=== PATIENT | male | born 1955 | race Caucasian/White ===

== ENCOUNTER → 2017-08-05 | Outpatient (CLI) | payer BC ==
[~2017-08-05] MED LIST: CA C1TAB26 PO; CPR500T PO; ETAN50PE SQ; HCT25T PO; HYOS0.1216 PO; OXYC1CAP3 PO; PHEN200T27 PO
--- NOTE | 2017-08-05 15:45 | Diagnostic Imaging Report ---
INDICATION: History of kidney stones. COMPARISON: 08/30/2013. FINDINGS: Single supine radiographic view of the abdomen was obtained and demonstrates multiple extraosseous calcifications projecting over the bilateral renal shadows, left greater than right. Left-sided disease appears to have progressed when compared to 2012. No unexpected radiopaque foreign bodies are identified. Small bowel loops are nondistended. Bony structures show no acute abnormalities. IMPRESSION: 1. Bilateral nephrolithiasis, left greater than right. Dictated by: Dictated on workstation # [id number]
== END ==
LOC: RAD 14:50
PROVIDERS: ATTEND Urology
DX: N20.0 Calculus of kidney (principal)
CPT/HCPCS: 74000

== ENCOUNTER 2017-08-12 05:42 | Outpatient (CLI) | payer BC ==
[~2017-08-12] VITALS: Ht 175.3 cm; Wt 82.6 kg
== END 2017-08-12 11:15 ==
LOC: PREOP 05:42
PROVIDERS: ATTEND Urology
DX: Z01.818 Encounter for other preprocedural examination (principal); N20.0 Calculus of kidney

== ENCOUNTER 2017-08-18 07:00 | Day surgery (SDC) | payer BC ==
[~2017-08-18] VITALS: Ht 175.3 cm; Wt 82.6 kg
--- OUTSIDE RECORDS SUMMARY | 2017-08-18 07:05 | XMS REPORT | Continuity of Care Document ---
Author Author [facility] Organization [facility] Address Unknown Phone Unavailable Allergies Active Description Code Type Severity Reaction Onset Reported/Identified Relationship to Patient Clinical Status Yes No Known Drug Allergies [id number] Drug Allergy Unknown N/ A 08/29/2013 Medications Problems Procedures Results Encounters ACCT No. Visit Date/Time Discharge Status Pt. Type Provider Facility Loc./Unit Complaint [id number] 08/05/2017 14:50:00 2016 23:59:59 CLS Outpatient ELSA PEREZ MD [facility] RAD HISTORY OF STONES [id number] 06/07/2014 16:36:00 2013 23:59:59 CLS Preadmit ELSA PEREZ MD [facility] LAB STONES [id number] 06/14/2013 16:53:00 2012 00:01:00 DIS Outpatient [id number] 08/30/2013 06:40:00 2012 11:20:00 DIS Outpatient [id number] 08/29/2013 10:41:00 2012 23:59:59 CLS Outpatient [id number] 08/28/2013 11:34:00 2012 23:59:59 CLS Outpatient
--- NOTE | 2017-08-18 07:12 | Progress Note-Pre Operative ---
Pre-Operative Progress Note H&P Reviewed The H&P was reviewed, patient examined and no changes noted. Date Seen by Provider: Aug 18, 2017 Time Seen by Provider: 07:12 Date H&P Reviewed: Aug 18, 2017 Time H&P Reviewed: 07:12 Pre-Operative Diagnosis: BILATERAL RENAL STONES ELSA PEREZ MD Aug 18, 2017 7:12 am
[2017-08-18] MEDS ORDERED: cefTRIAXone 1 GM (ROCEPHIN) VIAL ONE (07:31)
[2017-08-18] MEDS ORDERED: NS (IVPB) 50 ML ONE (07:31)
[2017-08-18] MEDS: LACTATED RINGERS 1,000 ML IV PRN ×2 (07:35→09:30)
[2017-08-18 07:45] VITALS: BP 157/98
--- NOTE | 2017-08-18 07:55 | Diagnostic Imaging Report ---
INDICATION: Urinary tract calculi Supine images of the abdomen are obtained with comparison made to study of 08/05/2017. Similar to the previous study there are multiple groups of calcification projecting over the left kidney without significant overall change. No definite ureteric stone is seen. There are phleboliths seen in the pelvis. IMPRESSION: Stable appearance of multiple groups of calcifications in the region of left kidney without evidence of ureteric stone. Dictated by: Dictated on workstation # [id number]
[2017-08-18] MEDS ORDERED: cefTRIAXone 1 GM/NS 50 ML IVPB IV ONE ×2 (08:00)
[2017-08-18] MEDS ORDERED: CATHETER FLUSH 10 ML SYR IV PRN (08:00)
[2017-08-18] MEDS ORDERED: fentaNYL INJECTION 100 MCG/2 ML AMP ONE (08:54)
[2017-08-18] MEDS ORDERED: MIDAZOLAM 2 MG/2 ML (VERSED) VIAL ONE (08:54)
--- NOTE | 2017-08-18 09:16 | Discharge Inst-Urology ---
Discharge Inst-Urology Discharge Medications New, Converted, or Re-newed RX: RX on Chart Patient Instructions/Follow Up Plan Please make appointment to been seen in office in 3 weeks. KUB prior to it KUB on way home Post ESWL instructions Increase oral fluids for 48 hours and then as needed. Diet and Activity as tolerated. If questions or concerns contact your physician Or seek help at emergency department. ELSA PEREZ MD Aug 18, 2017 9:16 am
--- NOTE | 2017-08-18 09:18 | Progress Note-Post Operative ---
Post-Operative Progess Note Surgeon (s)/Glass Blower Helper (s) Surgeon ELSA PEREZ MD Glass Blower Helper: N/A Pre-Operative Diagnosis BILATERAL RENAL STONES Post-Operative Diagnosis SAME Procedure & Operative Findings Date of Procedure 08/18/17 Procedure Performed/Findings LT ESWL Anesthesia Type GENERAL Estimated Blood Loss Estimated blood loss (mL): N/A Specimens/Packing Specimens Removed N/A Packing: N/A ELSA PEREZ MD Aug 18, 2017 09:17
[2017-08-18] MEDS ORDERED: LIDOCAINE PF 2% 5 ML (XYLOCAINE) VIAL ONE (09:19)
[2017-08-18] MEDS ORDERED: FUROSEMIDE 40 MG/4 ML INJ (LASIX) ONE (09:19)
[2017-08-18] MEDS ORDERED: proPOfol 200 MG/20 ML (DIPRIVAN) VIAL IV ONE (09:19)
[2017-08-18] MEDS ORDERED: ONDANSETRON 4 MG/2 ML (SDV) Z0FRAN ONE (09:19)
[2017-08-18] MEDS ORDERED: DEXAMETHASONE 10 MG/ML (DECADRON) 1 ML VIAL ONE (09:19)
[2017-08-18] MEDS ORDERED: SEVOFLURANE (ULTANE) 15 ML INHAL SOLN ONE (09:19)
[2017-08-18] MEDS ORDERED: morphine INJ 10 MG/ML 1ML (SYR OR VIAL) IVP PRN (10:00)
[2017-08-18] MEDS ORDERED: ONDANSETRON 4 MG/2 ML (SDV) Z0FRAN IVP PRN (10:00)
[2017-08-18 10:50] VITALS: BP 149/103
[2017-08-18 11:20] VITALS: BP 151/100
[2017-08-18] MEDS ORDERED: HYDR-3874 PO (11:21)
[2017-08-18] MEDS ORDERED: TAMS0.4C98 PO (11:21)
[2017-08-18] MEDS ORDERED: NITR-68 PO (11:21)
[2017-08-18 11:35] VITALS: BP 151/100
--- NOTE | 2017-08-18 13:08 | Diagnostic Imaging Report ---
Supine view of the abdomen. INDICATION: Post lithotripsy. FINDINGS: There are multiple calcifications projecting over the left kidney up to 5 mm in size. No right flank calcifications and no pelvic or ureteric stones identified. IMPRESSION: Left flank calcifications are likely related to left kidney stones up to 5 mm in size. Dictated by: Dictated on workstation # [id number]
--- NOTE | 2017-08-20 22:29 | OPERATIVE REPORT ---
DATE OF SERVICE: 08/18/2017 PREOPERATIVE DIAGNOSIS: Bilateral renal stone. POSTOPERATIVE DIAGNOSIS: Bilateral renal stone. OPERATION PERFORMED: Left ESWL. SURGEON: Duc Perez M.D. ANESTHESIA: General. COMPLICATIONS: None. PROCEDURE: Under satisfactory general anesthesia, the patient in supine position on the ESWL table, the big group of stones on the left kidney was localized. Shocks were delivered at kV of 5, a total of 2500 shocks completely fragmented the stones that were not visualized. The other small stones did not need any ESWL. A total of 2500 shocks were delivered. The patient received 40 mg of Lasix and 30 mg of Toradol IV at the end of the procedure. He tolerated the procedure and anesthesia well and was sent to recovery room in stable condition. Job ID: [id number] DocumentID: [id number] Dictated Date: 08/18/2017 09:41:09 Apartment Coordinator Date: 08/18/2017 18:26:21 Dictated By: DUC PEREZ MD
== END 2017-08-18 12:00 | disposition home or self-care (01) ==
LOC: SDC 07:00
PROVIDERS: ATTEND Urology
DX: N20.0 Calculus of kidney (principal)
CPT/HCPCS: 74000; 87081

== ENCOUNTER → 2017-09-08 | Outpatient (CLI) | payer BC ==
[~2017-09-08] MED LIST changes: +HYDR-3874 PO; +NITR-68 PO; +TAMS0.4C98 PO
--- NOTE | 2017-09-08 19:20 | Diagnostic Imaging Report ---
INDICATION: Bilateral renal stones, followup after lithotripsy. FINDINGS: There are left flank calcifications up to 5 mm in size projecting over the mid and lower left renal silhouette suggestive of stones. No definitive right kidney stones. No ureteric stone is identified. There is a small calcification near the right side of the pelvis, which might relate to a phlebolith. IMPRESSION: 1. Left flank calcifications likely related to left kidney stones. 2. Left pelvic calcification is indeterminate, favored to be a phlebolith. Dictated by: Dictated on workstation # [id number]
== END ==
LOC: RAD 14:18
PROVIDERS: ATTEND Urology
DX: R19.07 Generalized intra-abdominal and pelvic swelling, mass and lump (principal)
CPT/HCPCS: 74000

== ENCOUNTER 2017-09-12 15:35 | Outpatient (RCR) | payer BC | END 2017-12-07 | disposition home or self-care (01) | LOC: LAB 15:35 | PROVIDERS: ATTEND Urology | DX: N20.9 Urinary calculus, unspecified (principal) | CPT/HCPCS: 36415; 82140; 82340; 82507; 82570; 83735; 83945; 83986; 84105; 84133; 84300; 84392; 84560; 88300 ==

== ENCOUNTER 2018-07-05 16:28 | Outpatient (RCR) | payer BC ==
[~2018-07-05 16:28] MED LIST changes: +HYDR-3870 PO; -HYDR-3874 PO
--- NOTE | 2018-07-05 17:12 | Diagnostic Imaging Report ---
INDICATION: Renal stone. COMPARISON: 09/08/2017 FINDINGS: Single view of the abdomen demonstrates midpole left renal calculi unchanged measuring 5 mm. There are persistent but decreased renal calculi in the inferior pole of the left kidney. No ureteral calculus or bowel or bladder calculus is identified. IMPRESSION: Left renal calculi as described. Overall, there are less calcifications in the inferior pole of the left kidney. Dictated by: Dictated on workstation # [id number]
== END 2018-07-08 | disposition home or self-care (01) ==
LOC: RAD 16:28 → EDSTATUS 16:33
PROVIDERS: ATTEND Urology
DX: Z09 Encounter for follow-up examination after completed treatment for conditions other than malignant neoplasm (principal); Z87.442 Personal history of urinary calculi
CPT/HCPCS: 74018

== ENCOUNTER → 2018-09-24 | Outpatient (CLI) | payer BC ==
[2018-09-24 09:32] LABS: BASOPHILS % (AUTO) 0 % (0-10); EOSINOPHILS # (AUTO) 0.1 10^3/uL (0.0-0.3); EOSINOPHILS % (AUTO) 3 % (0-10); HEMATOCRIT 45 % (40-54); HEMOGLOBIN 14.8 G/DL (13.3-17.7); LYMPHOCYTES # (AUTO) 1.6 X 10^3 (1.0-4.0); LYMPHOCYTES % (AUTO) 37 % (12-44); MEAN CORPUSCULAR HEMOGLOBIN 30 PG (25-34); MEAN CORPUSCULAR HGB CONC 33 G/DL (32-36); MEAN CORPUSCULAR VOLUME 91 FL (80-99); MEAN PLATELET VOLUME 10.3 FL (7.4-10.4); MONOCYTES # (AUTO) 0.6 X 10^3 (0.0-1.0); MONOCYTES % (AUTO) 13 % (0-12); NEUTROPHILS # (AUTO) 2.1 X 10^3 (1.8-7.8); NEUTROPHILS % (AUTO) 47 % (42-75); PLATELET COUNT 229 10^3/uL (130-400); RED BLOOD COUNT 4.94 10^6/uL (4.35-5.85); RED CELL DISTRIBUTION WIDTH 13.5 % (10.0-14.5); WHITE BLOOD COUNT 4.5 10^3/uL (4.3-11.0)
[2018-09-24 09:53] LABS: ALANINE AMINOTRANSFERASE 21 U/L (0-55); ALBUMIN 3.9 GM/DL (3.2-4.5); ALKALINE PHOSPHATASE 55 U/L (40-136); BILIRUBIN,TOTAL 0.9 MG/DL (0.1-1.0); BUN/CREATININE RATIO 19; CALCIUM 9.1 MG/DL (8.5-10.1); CARBON DIOXIDE 26 MMOL/L (21-32); CHLORIDE 106 MMOL/L (98-107); CHOLESTEROL 206 MG/DL (< 200); CREATININE SERUM 1.13 MG/DL (0.60-1.30); GFR ESTIMATED > 60; GLUCOSE 101 MG/DL (70-105); HDL CHOLESTEROL 46 MG/DL (40-60); SODIUM 139 MMOL/L (135-145); TOTAL PROTEIN 7.4 GM/DL (6.4-8.2); TRIGLYCERIDES 58 MG/DL (<150); VLDL CHOLESTEROL 12 MG/DL (5-40)
== END ==
LOC: LAB 09:00
PROVIDERS: ATTEND Family Medicine
DX: E55.9 Vitamin D deficiency, unspecified (principal); R53.83 Other fatigue
CPT/HCPCS: 36415; 80053; 80061; 84403; 84443; 85025

== ENCOUNTER 2019-01-10 12:54 | Outpatient (CLI) | payer BC | END 2019-01-10 13:35 | disposition home or self-care (01) | LOC: SLEEP 12:54 | PROVIDERS: ATTEND Nurse Practitioner Family | DX: G47.10 Hypersomnia, unspecified (principal); G47.00 Insomnia, unspecified; R06.83 Snoring; F39 Unspecified mood [affective] disorder ==

== ENCOUNTER → 2019-01-14 | Outpatient (CLI) | payer BC | LOC: LAB 08:17 | PROVIDERS: ATTEND Nurse Practitioner Family | DX: R53.83 Other fatigue (principal) | CPT/HCPCS: 36415; 84402; 84403 ==

== ENCOUNTER 2019-01-26 13:01 | Emergency (ER) | payer BC ==
[~2019-01-26] VITALS: Ht 175.3 cm; Wt 79.4 kg
--- OUTSIDE RECORDS SUMMARY | 2019-01-26 13:15 | XMS REPORT | CCD ---
Author Author Lorrie Salas MD, 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 Name Role Phone PP Unavailable CCM Unavailable Summary Purpose Interface Exchange Insurance Providers Payer name Policy type / Coverage type Covered constitution party ID Effective Begin Date Effective End Date Blue Cross Blue Shield [facility] Blue Cross/Blue Shield [id number] Unknown Family history Mother Diagnosis Age At Onset Heart Attack Unknown Social History Social History Element Codes Description Effective Dates Marital status Unknown Irene 01/12/2019 Number of children Unknown 0 biological; 2 step children 01/12/2019 Employment Unknown 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 [employer] 01/12/[address]: 120801928 Never smoker 09/23/[address]: 130394369 Never drinks alcohol 09/23/2018 Allergies, Adverse Reactions, Alerts Substance Reaction Codes Entered Date Inactivated Date Status * NO KNOWN DRUG ALLERGIES Unknown 01/12/2019 No Inactive Date Active Past Medical History Illness Codes Condition Status Onset Date Resolved Date Generalized anxiety disorder ICD-9: 300.00 ICD-10: F41.1 Active 09/23/2018 Unknown Major depressive disorder, single episode, moderate ICD-9: 296.22 ICD-10: F32.1 Active 09/23/2018 Unknown Other fatigue ICD-9: 780.79 ICD-10: R53.83 Active 09/23/2018 Unknown Mixed hyperlipidemia ICD-9: 272.2 ICD-10: E78.2 Active 01/05/2019 Unknown Vitamin D deficiency, unspecified ICD-9: 268.9 ICD-10: E55.9 Active 01/05/2019 Unknown Problems Condition Codes Effective Dates Condition Status Generalized anxiety disorder ICD-9: 300.00 ICD-10: F41.1 09/23/2018 Active Major depressive disorder, single episode, moderate ICD-9: 296.22 ICD-10: F32.1 09/23/2018 Active Other fatigue ICD-9: 780.79 ICD-10: R53.83 09/23/2018 Active Mixed hyperlipidemia ICD-9: 272.2 ICD-10: E78.2 01/05/2019 Active Vitamin D deficiency, unspecified ICD-9: 268.9 ICD-10: E55.9 01/05/2019 Active Medications Medication Codes Instructions Start Date Stop Date Status Fill Instructions buspirone 5 mg tablet RxNorm: 646388 1 Tablet(s) PO BID 201802/10/2019 Active Lexapro 10 mg tablet RxNorm: 499162 1 Tablet(s) PO QPM 201807/03/2019 Active Vitamin D2 50,000 unit capsule RxNorm: 4507025 1 Capsule(s) PO QW and take vit d 2000 1 tab one day with weekly dose 10/05/2018 12/27/2018 Inactive pravastatin 20 mg tablet RxNorm: 135142 1 Tablet(s) PO QPM 02/01/2019 Active Vitamin D2 50,000 unit capsule RxNorm: 0776046 1 Capsule(s) PO QW and take vit d 2000 1 tab one day with weekly dose 10/05/2018 10/04/2018 Inactive pravastatin 20 mg tablet RxNorm: 134418 1 Tablet(s) PO QPM 10/04/2018 Inactive hydrochlorothiazide 25 mg tablet RxNorm: 100196 1 Tablet(s) PO daily No Start Date Active Stelara 45 mg/0.5 mL subcutaneous solution RxNorm: 2590531 1 Milliliter(s) SQ q three months No Start Date Active Medication Administered No Medication Administered data Immunizations No Immunization data Assessments Condition Codes Effective Dates Major depressive disorder, single episode, moderate ICD-10: F32.1 ICD-9: 296.22 01/12/2019 Generalized anxiety disorder ICD-10: F41.1 ICD-9: 300.00 01/12/2019 Other fatigue ICD-10: R53.83 ICD-9: 780.79 01/12/2019 Mixed hyperlipidemia ICD-10: E78.2 ICD-9: 272.2 01/05/2019 Vitamin D deficiency, unspecified ICD-10: E55.9 ICD-9: 268.9 01/05/2019 Reason For Visit Reason For Visit Effective Dates Notes fatigue 01/12/2019 abdominal pain 01/05/2019 depression 09/23/2018 Results Observation Observation Code Item Item Code Result Date Comp Metabolic Pxw940 NA 138 mEq/L 01/06/2019 Comp Metabolic Jew117 K 4.4 mEq/L 01/06/2019 Comp Metabolic Bbg050 CL 103 mEq/L 01/06/2019 Comp Metabolic Gky038 CO2 28.0 mEq/L 01/06/2019 Comp Metabolic Owv977 ANION GAP 11 01/06/2019 Comp Metabolic Dsp544 GLUCOSE 93 mg/dL 01/06/2019 Comp Metabolic Eiw625 Creat 1.1 mg/dL 01/06/2019 Comp Metabolic Qtd569 eGFR 74 ml/min/1.73m2 01/06/2019 Comp Metabolic Iru280 BUN 16 mg/dL 01/06/2019 Comp Metabolic Vtr578 B/C Ratio 14.8 Ratio 01/06/2019 Comp Metabolic Nkq666 CALCIUM 9.3 mg/dL 01/06/2019 Comp Metabolic Eks488 ALK PHOS 68 U/L 01/06/2019 Comp Metabolic Rzj099 AST(SGOT) 25 U/L 01/06/2019 Comp Metabolic Jaw609 ALT(SGPT) 23 U/L 01/06/2019 Comp Metabolic Fch009 BILI T 0.6 mg/dL 01/06/2019 Comp Metabolic Eon604 ALBUMIN 3.9 g/dL 01/06/2019 Comp Metabolic Zfg526 TPRO 7.4 g/dL 01/06/2019 Comp Metabolic Noc854 GLOB 3.5 g/dL 01/06/2019 Comp Metabolic Xjn218 A/G Ratio 1.1 Ratio 01/06/2019 Comp Metabolic Qqy085 Osmo 277 mOsmo 01/06/2019 Vitamin D 25 Oh Jse2948 VITAMIN D, 25 HYDROXY 61.31 ng/mL Lipid Ord30 CHOL 196 mg/dL 01/06/2019 Lipid Ord30 HDL 52.0 mg/dl 01/06/2019 Lipid Ord30 TRIG 68 mg/dL 01/06/2019 Lipid Ord30 LDL 130 mg/dL 01/06/2019 Lipid Ord30 C/HDL 3.8 Ratio 01/06/2019 Cbc With Differential Ord2 WBC 7.51 K/ul 01/05/2019 Cbc With Differential Ord2 RBC 4.76 M/ul 01/05/2019 Cbc With Differential Ord2 HGB 14.4 g/dl 01/05/2019 Cbc With Differential Ord2 HCT 44.0 % 01/05/2019 Cbc With Differential Ord2 Neut% 63.0 % 01/05/2019 Cbc With Differential Ord2 MCV 92.4 fl 01/05/2019 Cbc With Differential Ord2 Lymph% 27.8 % 01/05/2019 Cbc With Differential Ord2 MCH 30.3 pg 01/05/2019 Cbc With Differential Ord2 [place]% 8.0 % 01/05/2019 Cbc With Differential Ord2 MCHC 32.7 pg 01/05/2019 Cbc With Differential Ord2 Eos% 0.9 % 01/05/2019 Cbc With Differential Ord2 PLT 250 K/ul 01/05/2019 Cbc With Differential Ord2 Baso% 0.3 % 01/05/2019 Cbc With Differential Ord2 RDW 13.9 % 01/05/2019 Cbc With Differential Ord2 Neut ABS# 4.73 K/ul 01/05/2019 Cbc With Differential Ord2 Lymph ABS# 2.09 K/ul 01/05/2019 Cbc With Differential Ord2 [place] ABS# 0.6 K/ul 01/05/2019 Cbc With Differential Ord2 Eos ABS# 0.1 K/ul 01/05/2019 Cbc With Differential Ord2 Baso ABS# 0.0 K/ul 01/05/2019 Review of Systems System Result Effective Dates Constitutional No recent illness 2018 Constitutional anorexia 01/12/2019 Constitutional No night sweats 2018 Constitutional No chills 01/12/2019 Constitutional No diaphoresis 01/12/2019 Constitutional fatigue 01/12/2019 Constitutional No fever 01/12/2019 Constitutional insomnia 01/12/2019 Constitutional No malaise 01/12/2019 Eyes No blindness 01/12/2019 Ears/Nose/Throat/Neck No dizziness 2018 Ears/Nose/Throat/Neck No nasal discharge 01/12/2019 Cardiovascular No chest pain/pressure 05/2019 Cardiovascular No dyspnea 01/12/2019 Respiratory No chest congestion 2018 Respiratory cough 01/12/2019 Gastrointestinal No constipation 2018 Gastrointestinal No diarrhea 01/12/2019 Gastrointestinal No hematochezia 2018 Gastrointestinal No melena 01/12/2019 Gastrointestinal No nausea 01/12/2019 Gastrointestinal No vomiting 01/12/2019 Musculoskeletal No joint complaint 2018 Neurologic No alteration of consciousness 01/12/2019 Neurologic No mental status change 2018 Psychiatric anxiety 01/12/2019 Psychiatric depression 01/12/2019 Psychiatric No suicidality 01/12/2019 Constitutional No recent illness 2018 Constitutional No chills 01/05/2019 Constitutional No diaphoresis 01/05/2019 Constitutional fatigue 01/05/2019 Constitutional No fever 01/05/2019 Constitutional insomnia 01/05/2019 Eyes No blindness 01/05/2019 Ears/Nose/Throat/Neck No nasal discharge 01/05/2019 Cardiovascular No chest pain/pressure Cardiovascular No dyspnea 01/05/2019 Respiratory No chest congestion 2018 Respiratory cough 01/05/2019 Gastrointestinal abdominal pain 2018 Gastrointestinal No constipation 2018 Gastrointestinal No diarrhea 01/05/2019 Gastrointestinal No hematochezia 2018 Gastrointestinal No melena 01/05/2019 Gastrointestinal No nausea 01/05/2019 Gastrointestinal No vomiting 01/05/2019 Musculoskeletal No joint complaint 2018 Neurologic No alteration of consciousness 01/05/2019 Neurologic No mental status change 2018 Psychiatric anxiety 01/05/2019 Psychiatric depression 01/05/2019 Psychiatric No suicidality 01/05/2019 Constitutional No anorexia 01/05/2019 Constitutional No night sweats 2018 Constitutional No malaise 01/05/2019 Ears/Nose/Throat/Neck No dizziness 2018 Constitutional No recent illness 2017 Constitutional No chills 09/23/2018 Constitutional No diaphoresis 09/23/2018 Constitutional fatigue 09/23/2018 Constitutional No fever 09/23/2018 Constitutional insomnia 09/23/2018 Eyes No eye erythema 09/23/2018 Ears/Nose/Throat/Neck No nasal discharge 09/23/2018 Cardiovascular No chest pain/pressure Cardiovascular No dyspnea 09/23/2018 Respiratory No cough 09/23/2018 Respiratory No chest congestion 2017 Gastrointestinal No abdominal pain 2017 Gastrointestinal No constipation 2017 Gastrointestinal No diarrhea 09/23/2018 Gastrointestinal No nausea 09/23/2018 Gastrointestinal No vomiting 09/23/2018 Gastrointestinal No melena 09/23/2018 Gastrointestinal No hematochezia 2017 Musculoskeletal No joint complaint 2017 Neurologic No alteration of consciousness 09/23/2018 Neurologic No mental status change 2017 Psychiatric anxiety 09/23/2018 Psychiatric depression 09/23/2018 Psychiatric No suicidality 09/23/2018 Physical Exam Exam Name System Name Item Name Status Result Effective Dates Notes Full Exam - General 1994 Constitutional general appearance Overall: well developed 01/12/2019 None Full Exam - General 1994 Constitutional general appearance Overall: in no acute distress 01/12/2019 None Full Exam - General 1994 Constitutional general appearance Overall: well nourished 01/12/2019 None Full Exam - General 1994 Eyes conjunctiva /eyelids Overall: conjunctiva clear 01/12/2019 None Full Exam - General 1994 Eyes conjunctiva /eyelids Overall: cornea clear 01/12/2019 None Full Exam - General 1994 Eyes conjunctiva /eyelids Overall: eyelids normal 01/12/2019 None Full Exam - General 1994 Eyes pupils and irises Overall: pupils equal, round, reactive to light and accomodation 01/12/2019 None Full Exam - General 1994 Ears/Nose/Throat otoscopic exam Overall: external auditory canals clear 01/12/2019 None Full Exam - General 1994 Ears/Nose/Throat otoscopic exam Overall: tympanic membranes clear 01/12/2019 None Full Exam - General 1994 Ears/Nose/Throat lips/teeth/gingiva Overall: benign lips 01/12/2019 None Full Exam - General 1994 Ears/Nose/Throat oral cavity/pharynx/larynx Overall: oral mucosa clear 01/12/2019 None Full Exam - General 1994 Ears/Nose/Throat oral cavity/pharynx/larynx Overall: oropharyngeal mucosa clear 01/12/2019 None Full Exam - General 1994 Respiratory auscultation Overall: breath sounds clear bilaterally 01/12/2019 None Full Exam - General 1994 Respiratory respiratory effort/rhythm Overall: no retractions 01/12/2019 None Full Exam - General 1994 Respiratory respiratory effort/rhythm Overall: normal rate 01/12/2019 None Full Exam - General 1994 Cardiovascular auscultation of heart Overall: regular rate 01/12/2019 None Full Exam - General 1994 Cardiovascular auscultation of heart Overall: normal heart sounds 01/12/2019 None Full Exam - General 1994 Abdomen abdominal exam Overall: no tenderness 01/12/2019 None Full Exam - General 1994 Abdomen abdominal exam Overall: normal bowel sounds 01/12/2019 None Full Exam - Cardiology Lymphatic neck nodes Overall: anterior cervical chain benign 01/12/2019 None Full Exam - Cardiology Lymphatic neck nodes Overall: posterior cervical chain benign 01/12/2019 None Full Exam - Cardiology Integument inspection/palpation Overall: no rash, lesions 01/12/2019 None Full Exam - General 1995 Musculoskeletal gait and station Overall: normal gait 01/12/2019 None Full Exam - General 1995 Musculoskeletal gait and station Overall: normal station 01/12/2019 None Full Exam - General 1994 Musculoskeletal head and neck Overall: head atraumatic 01/12/2019 None Full Exam - General 1994 Neurologic cranial nerves Overall: crainial nerves 2 - 12 grossly intact 01/12/2019 None Full Exam - General 1994 Psychiatric orientation/consciousness Overall: oriented to person, place and time 01/12/2019 None Full Exam - General 1994 Psychiatric mood and affect Overall: normal mood and affect 01/12/2019 None Full Exam - General 1994 Psychiatric appearance Overall: well-groomed, good eye contact 01/12/2019 None Full Exam - General 1994 Constitutional general appearance Overall: well developed 01/05/2019 None Full Exam - General 1994 Constitutional general appearance Overall: in no acute distress 01/05/2019 None Full Exam - General 1994 Constitutional general appearance Overall: well nourished 01/05/2019 None Full Exam - General 1994 Eyes conjunctiva /eyelids Overall: conjunctiva clear 01/05/2019 None Full Exam - General 1994 Eyes conjunctiva /eyelids Overall: cornea clear 01/05/2019 None Full Exam - General 1994 Eyes conjunctiva /eyelids Overall: eyelids normal 01/05/2019 None Full Exam - General 1994 Eyes pupils and irises Overall: pupils equal, round, reactive to light and accomodation 01/05/2019 None Full Exam - General 1994 Ears/Nose/Throat otoscopic exam Overall: external auditory canals clear 01/05/2019 None Full Exam - General 1994 Ears/Nose/Throat otoscopic exam Overall: tympanic membranes clear 01/05/2019 None Full Exam - General 1994 Ears/Nose/Throat lips/teeth/gingiva Overall: benign lips 01/05/2019 None Full Exam - General 1994 Ears/Nose/Throat oral cavity/pharynx/larynx Overall: oral mucosa clear 01/05/2019 None Full Exam - General 1994 Ears/Nose/Throat oral cavity/pharynx/larynx Overall: oropharyngeal mucosa clear 01/05/2019 None Full Exam - General 1994 Respiratory auscultation Overall: breath sounds clear bilaterally 01/05/2019 None Full Exam - General 1994 Respiratory respiratory effort/rhythm Overall: no retractions 01/05/2019 None Full Exam - General 1994 Respiratory respiratory effort/rhythm Overall: normal rate 01/05/2019 None Full Exam - General 1994 Cardiovascular auscultation of heart Overall: regular rate 01/05/2019 None Full Exam - General 1994 Cardiovascular auscultation of heart Overall: normal heart sounds 01/05/2019 None Full Exam - General 1994 Abdomen abdominal exam Overall: no tenderness 01/05/2019 None Full Exam - General 1994 Abdomen abdominal exam Overall: normal bowel sounds 01/05/2019 None Full Exam - General 1994 Musculoskeletal gait and station Overall: normal gait 01/05/2019 None Full Exam - General 1994 Musculoskeletal gait and station Overall: normal station 01/05/2019 None Full Exam - General 1994 Musculoskeletal head and neck Overall: head atraumatic 01/05/2019 None Full Exam - General 1994 Neurologic cranial nerves Overall: crainial nerves 2 - 12 grossly intact 01/05/2019 None Full Exam - General 1994 Psychiatric orientation/consciousness Overall: oriented to person, place and time 01/05/2019 None Full Exam - General 1994 Psychiatric mood and affect Overall: normal mood and affect 01/05/2019 None Full Exam - General 1994 Psychiatric appearance Overall: well-groomed, good eye contact 01/05/2019 None Full Exam - Cardiology Integument inspection/palpation Overall: no rash, lesions 01/05/2019 None Full Exam - Cardiology Lymphatic neck nodes Overall: anterior cervical chain benign 01/05/2019 None Full Exam - Cardiology Lymphatic neck nodes Overall: posterior cervical chain benign 01/05/2019 None Full Exam - General 1994 Constitutional general appearance Overall: well developed 09/23/2018 None Full Exam - General 1994 Constitutional general appearance Overall: in no acute distress 09/23/2018 None Full Exam - General 1994 Constitutional general appearance Overall: well nourished 09/23/2018 None Full Exam - General 1994 Eyes conjunctiva /eyelids Overall: eyelids normal 09/23/2018 None Full Exam - General 1994 Eyes conjunctiva /eyelids Overall: cornea clear 09/23/2018 None Full Exam - General 1994 Eyes conjunctiva /eyelids Overall: conjunctiva clear 09/23/2018 None Full Exam - General 1994 Eyes pupils and irises Overall: pupils equal, round, reactive to light and accomodation 09/23/2018 None Full Exam - General 1994 Ears/Nose/Throat otoscopic exam Overall: tympanic membranes clear 09/23/2018 None Full Exam - General 1994 Ears/Nose/Throat otoscopic exam Overall: external auditory canals clear 09/23/2018 None Full Exam - General 1994 Ears/Nose/Throat lips/teeth/gingiva Overall: benign lips 09/23/2018 None Full Exam - General 1994 Ears/Nose/Throat oral cavity/pharynx/larynx Overall: oral mucosa clear 09/23/2018 None Full Exam - General 1994 Ears/Nose/Throat oral cavity/pharynx/larynx Overall: oropharyngeal mucosa clear 09/23/2018 None Full Exam - General 1994 Respiratory respiratory effort/rhythm Overall: normal rate 09/23/2018 None Full Exam - General 1994 Respiratory respiratory effort/rhythm Overall: no retractions 09/23/2018 None Full Exam - General 1994 Respiratory auscultation Overall: breath sounds clear bilaterally 09/23/2018 None Full Exam - General 1994 Cardiovascular auscultation of heart Overall: regular rate 09/23/2018 None Full Exam - General 1994 Cardiovascular auscultation of heart Overall: normal heart sounds 09/23/2018 None Full Exam - General 1994 Abdomen abdominal exam Overall: no tenderness 09/23/2018 None Full Exam - General 1994 Abdomen abdominal exam Overall: normal bowel sounds 09/23/2018 None Full Exam - General 1994 Musculoskeletal head and neck Overall: head atraumatic 09/23/2018 None Full Exam - General 1994 Musculoskeletal gait and station Overall: normal station 09/23/2018 None Full Exam - General 1994 Musculoskeletal gait and station Overall: normal gait 09/23/2018 Full Exam - General 1994 Neurologic cranial nerves Overall: crainial nerves 2 - 12 grossly intact 09/23/2018 Full Exam - General 1994 Psychiatric orientation/consciousness Overall: oriented to person, place and time 09/23/2018 None Full Exam - General 1994 Psychiatric mood and affect Overall: normal mood and affect 09/23/2018 None Full Exam - General 1994 Psychiatric appearance Overall: well-groomed, good eye contact 09/23/2018 None Procedures No Procedures data Vital Signs Date Vital 01/12/2019 Blood Pressure 1: 138/90 Code : 8480-6 BMI: 25.8 Code : 55289-9 Heart Rate 1 : 74 bpm Height: 5'9" SpO2: 97% Weight: 175 lbs 01/05/2019 Blood Pressure 1: 110/78 Code : 8480-6 BMI: 26.3 Code : 13592-0 Heart Rate 1 : 78 bpm Height: 5'9" SpO2: 98% Weight: 178 lbs 09/23/2018 Blood Pressure 1: 110/68 Code : 8480-6 BMI: 25.8 Code : 24253-2 Heart Rate 1 : 103 bpm Height: 5'9" SpO2: 98% Weight: 175 lbs Functional Status No Functional Status data History of Present Illness Symptom Name Status Result Effective Date Notes Limitation on Activities moderately limits activities 01/12/2019 None Onset of Symptom months ago 01/12/2019 None Triggers no known associated factors 01/12/2019 None Pertinent Findings chills 01/12/2019 None Pertinent Findings depressed mood 01/12/2019 None Pertinent Findings Denies cough 01/12/2019 None Pertinent Findings Denies dyspnea 01/12/2019 None Pertinent Findings Denies fever 01/12/2019 None Pertinent Findings insomnia 01/12/2019 -His states that he wakes up a couple of times during the night Frequency of Episodes Denies daily 01/12/2019 None Timing of Episodes no specific time 01/12/2019 None Onset and Resolution Denies ongoing 01/12/2019 None Location in the [facility] 01/05/2019 None Quality aching 2018 None Quality constant None Limitation on Activities moderately limits activities 01/05/2019 None Onset of Symptom _ months ago 01/05/2019 None Frequency of Episodes daily 01/05/2019 None Onset of Symptom during adulthood 01/05/2019 None depression Onset and Resolution sudden in onset 09/23/2018 None depression Frequency of Episodes daily 09/23/2018 None anxiety Quality constant 09/23/2018 None anxiety Onset and Resolution gradual in onset 09/23/2018 None fatigue Limitation on Activities moderately limits activities 09/23/2018 None fatigue Onset of Symptom 6 months ago 09/23/2018 None fatigue Frequency of Episodes daily 09/23/2018 None anxiety Onset of Symptom 6 months ago 09/23/2018 None depression Onset of Symptom 6 months ago 09/23/2018 None Advance Directives No Advance Directive data Encounters Encounter Performer Location Codes Date [id number]) [id number] EST. PATIENT, LEVEL IV Diagnosis: Generalized anxiety disorder[ICD10: F41.1] Diagnosis: Major depressive disorder, single episode, moderate[ICD10: F32.1] Diagnosis: Other fatigue[ICD10: R53.83] [facility] CPT-4: 56727 01/12/2019 ([id number]) [id number] EST. PATIENT, LEVEL IV Diagnosis: Mixed hyperlipidemia[ICD10: E78.2] Diagnosis: Generalized anxiety disorder[ICD10: F41.1] Diagnosis: Major depressive disorder, single episode, moderate[ICD10: F32.1] Diagnosis: Vitamin D deficiency, unspecified[ICD10: E55.9] Diagnosis: Other fatigue[ICD10: R53.83] [facility] CPT-4: 53445 01/05/2019 OFFICE VISIT, NEW - LEVEL 4 Diagnosis: Other fatigue[ICD10: R53.83] Diagnosis: Generalized anxiety disorder[ICD10: F41.1] Diagnosis: Major depressive disorder, single episode, moderate[ICD10: F32.1] [facility] CPT-4: 61683 09/23/2018 Plan of Care Planned Activity Notes Codes Status Date Visit Plan: Anxiety -not well controlled-start buspar 5mg twice daily -continue lexapro -monitor symptoms and follow up in 1 month, sooner if needed Fatigue-family history of cardiovascular disease-refer to Dr Knapp for evaluation Abnormal sleep study-awaiting report -Dr Robertson is going to manage 01/12/2019 Patient Education: Patient Medication Summary Completed 01/12/2019 Patient Education: Depression Completed 01/12/2019 Care Plan: Referral Order SNOMED-CT : [id number] Pending 01/12/2019 Visit Plan: Hyperlipidemia - pt has been counseled about appropriate diet, exercise, and need for low fat food choices. I have discussed the need for the patient to take medications as prescribed. If the patient has negative side effects from the medication, they are to CALL the office and not abruptly discontinue the medication without discussion with a practitioner in the office. We will check labs in 3-6 months for follow up on the patient's chronic medical problem and to assure normal liver response to medications. Anxiety - the patient has uncontrolled anxiety and will benefit from an SSRI on a daily basis to attempt control of the symptoms of anxiety (tachycardia, overwhelming sensations, stress, insomnia, etc). Pt is aware of the risks and benefits of treatment with the above medications. Fatigue-check testosterone level-schedule sleep study Vitamin d def-check level 01/05/2019 Visit Plan: Hyperlipidemia - pt has been counseled about appropriate diet, exercise, and need for low fat food choices. I have discussed the need for the patient to take medications as prescribed. If the patient has negative side effects from the medication, they are to CALL the office and not abruptly discontinue the medication without discussion with a practitioner in the office. We will check labs in 3-6 months for follow up on the patient's chronic medical problem and to assure normal liver response to medications. Anxiety - the patient has uncontrolled anxiety and will benefit from an SSRI on a daily basis to attempt control of the symptoms of anxiety (tachycardia, overwhelming sensations, stress, insomnia, etc). Pt is aware of the risks and benefits of treatment with the above medications. Fatigue-check testosterone level-schedule sleep study Vitamin d def-check level 01/05/2019 Appointment: Klaudia Jeffrey WPtel: [address] [place], [place] [phone] (30 min) [facility] 01/05/2019 Patient Education: Patient Medication Summary Completed 01/05/2019 Patient Education: Depression Completed 01/05/2019 Patient Education: Cholesterol Management Completed 01/05/2019 Care Plan: Comp Metabolic Pending 09/26/2018 Care Plan: Cbc With Differential Pending 09/26/2018 Care Plan: Tsh Pending 09/26/2018 Care Plan: Lipid Pending 09/26/2018 Care Plan: Free T4 Pending 09/26/2018 Care Plan: Testosterone Pending 09/26/2018 Care Plan: Vitamin D 25 Oh Pending 09/26/2018 Visit Plan: Fatigue - will check labs and treat as indicated - pt is to notify clinic with any changes, questions, or concerns. Anxiety - the patient has uncontrolled anxiety and will benefit from an SSRI on a daily basis to attempt control of the symptoms of anxiety (tachycardia, overwhelming sensations, stress, insomnia, etc). I also believe that the patient will benefit from very low dose of prn benzodiazepine. Pt is aware of the risks and benefits of treatment with the above medications. Depression - uncontrolled - Pt has been counseled about the diagnosis of depression, the potential causes, and risks associated with the diagnosis. The pt denies suicidal ideation, or plans. The patient has been counseled about treatment options, and understands the risks associated with treatment of depression, as well as the risks associated with NOT treating the depression. I believe the pt will benefit from medical intervention and an antidepressant has been appropriately prescribed for this patient. 09/23/2018 Appointment: Lorrie [facility]as [facility]el[facility] [phone] [facility] [place] New Patient 09/23/2018 Patient Education: Patient Medication Summary Completed 09/23/2018 Patient Education: Depression Completed 09/23/2018 Referral: [facility] Referral Appointment Requested Instructions Comment Dr Knapp appt -mid afternoons work best buspirone 5mg twice daily continue lexapro . Anxiety -not well controlled-start buspar 5mg twice daily -continue lexapro - monitor symptoms and follow up in 1 month, sooner if needed Fatigue-family history of cardiovascular disease-refer to Dr Knapp for evaluation Abnormal sleep study-awaiting report -Dr Robertson is going to manage . Fatigue - will check labs and treat as indicated - pt is to notify clinic with any changes, questions, or concerns. Anxiety - the patient has uncontrolled anxiety and will benefit from an SSRI on a daily basis to attempt control of the symptoms of anxiety (tachycardia, overwhelming sensations, stress, insomnia, etc). I also believe that the patient will benefit from very low dose of prn benzodiazepine. Pt is aware of the risks and benefits of treatment with the above medications. Depression - uncontrolled - Pt has been counseled about the diagnosis of depression, the potential causes, and risks associated with the diagnosis. The pt denies suicidal ideation, or plans. The patient has been counseled about treatment options, and understands the risks associated with treatment of depression, as well as the risks associated with NOT treating the depression. I believe the pt will benefit from medical intervention and an antidepressant has been appropriately prescribed for this patient. CHECK LABS TESTOSTERONE -NEEDS TO BE REDEYE GUNNER LEXAPRO 10MG DAILY . Hyperlipidemia - pt has been counseled about appropriate diet, exercise, and need for low fat food choices. I have discussed the need for the patient to take medications as prescribed. If the patient has negative side effects from the medication, they are to CALL the office and not abruptly discontinue the medication without discussion with a practitioner in the office. We will check labs in 3-6 months for follow up on the patient's chronic medical problem and to assure normal liver response to medications. Anxiety - the patient has uncontrolled anxiety and will benefit from an SSRI on a daily basis to attempt control of the symptoms of anxiety (tachycardia, overwhelming sensations, stress, insomnia, etc). Pt is aware of the risks and benefits of treatment with the above medications. Fatigue-check testosterone level-schedule sleep study Vitamin d def-check level CHECK LABS TESTOSTERONE -NEEDS TO BE REDEYE GUNNER LEXAPRO 10MG DAILY . Hyperlipidemia - pt has been counseled about appropriate diet, exercise, and need for low fat food choices. I have discussed the need for the patient to take medications as prescribed. If the patient has negative side effects from the medication, they are to CALL the office and not abruptly discontinue the medication without discussion with a practitioner in the office. We will check labs in 3-6 months for follow up on the patient's chronic medical problem and to assure normal liver response to medications. Anxiety - the patient has uncontrolled anxiety and will benefit from an SSRI on a daily basis to attempt control of the symptoms of anxiety (tachycardia, overwhelming sensations, stress, insomnia, etc). Pt is aware of the risks and benefits of treatment with the above medications. Fatigue-check testosterone level-schedule sleep study Vitamin d def-check level
--- OUTSIDE RECORDS SUMMARY | 2019-01-26 13:15 | XMS REPORT | CCD ---
Author Author Lorrie Salas MD, [facility] Address [address] [place] [address] Phone Care Team Providers Care Farm Advisor Name Role Phone PP Unavailable CCM Unavailable Summary Purpose Interface Exchange Insurance Providers Payer name Policy type / Coverage type Covered green party ID Effective Begin Date Effective End Date Blue Cross Blue Shield [facility] Blue Cross/Blue Shield [id number] Unknown Family history Mother Diagnosis Age At Onset Heart Attack Unknown Social History Social History Element Codes Description Effective Dates Marital status Unknown Irene 01/12/2019 Number of children Unknown 0 biological; 2 step children 01/12/2019 Employment Unknown 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 [employer] 01/12/[address]: 779069817 Never smoker 09/23/[address]: 529222146 Never drinks alcohol 09/23/2018 Allergies, Adverse Reactions, [...] Fill Instructions buspirone 5 mg tablet RxNorm: 083289 1 Tablet(s) PO BID 201802/10/2019 Active Lexapro 10 mg tablet RxNorm: 153728 1 Tablet(s) PO QPM 201807/03/2019 Active Vitamin D2 50,000 unit capsule RxNorm: 8870878 1 Capsule(s) PO QW and take vit d 2000 1 tab one day with weekly dose 10/05/2018 12/27/2018 Inactive pravastatin 20 mg tablet RxNorm: 354445 1 Tablet(s) PO QPM 02/01/2019 Active Vitamin D2 50,000 unit capsule RxNorm: 7476609 1 Capsule(s) PO QW and take vit d 2000 1 tab one day with weekly dose 10/05/2018 10/04/2018 Inactive pravastatin 20 mg tablet RxNorm: 878153 1 Tablet(s) PO QPM 10/04/2018 Inactive hydrochlorothiazide 25 mg tablet RxNorm: 123084 1 Tablet(s) PO daily No Start Date Active Stelara 45 mg/0.5 mL subcutaneous solution RxNorm: 0857261 1 Milliliter(s) SQ q three months No [...] Item Item Code Result Date Comp Metabolic Inv903 NA 138 mEq/L 01/06/2019 Comp Metabolic Upz777 K 4.4 mEq/L 01/06/2019 Comp Metabolic Int929 CL 103 mEq/L 01/06/2019 Comp Metabolic Lrx494 CO2 28.0 mEq/L 01/06/2019 Comp Metabolic Azy360 ANION GAP 11 01/06/2019 Comp Metabolic Wie365 GLUCOSE 93 mg/dL 01/06/2019 Comp Metabolic Nue297 Creat 1.1 mg/dL 01/06/2019 Comp Metabolic Gsn978 eGFR 74 ml/min/1.73m2 01/06/2019 Comp Metabolic Jkv968 BUN 16 mg/dL 01/06/2019 Comp Metabolic Cvr188 B/C Ratio 14.8 Ratio 01/06/2019 Comp Metabolic Xef732 CALCIUM 9.3 mg/dL 01/06/2019 Comp Metabolic Kav111 ALK PHOS 68 U/L 01/06/2019 Comp Metabolic Szu685 AST(SGOT) 25 U/L 01/06/2019 Comp Metabolic Rpa586 ALT(SGPT) 23 U/L 01/06/2019 Comp Metabolic Jjq544 BILI T 0.6 mg/dL 01/06/2019 Comp Metabolic Jhi593 ALBUMIN 3.9 g/dL 01/06/2019 Comp Metabolic Vjh734 TPRO 7.4 g/dL 01/06/2019 Comp Metabolic Cbk984 GLOB 3.5 g/dL 01/06/2019 Comp Metabolic Rbb156 A/G Ratio 1.1 Ratio 01/06/2019 Comp Metabolic Vua512 Osmo 277 mOsmo 01/06/2019 Vitamin D 25 Oh Jiv7019 VITAMIN D, 25 HYDROXY 61.31 ng/mL Lipid [...] 30.3 pg 01/05/2019 Cbc With Differential Ord2 [place]% 8.0 % 01/05/2019 Cbc With Differential Ord2 [...] 2.09 K/ul 01/05/2019 Cbc With Differential Ord2 [place] ABS# 0.6 K/ul 01/05/2019 Cbc With Differential [...] Code : 8480-6 BMI: 25.8 Code : 46977-3 Heart Rate 1 : 74 bpm Height: 5'9" SpO2: 97% Weight: 175 lbs 01/05/2019 Blood Pressure 1: 110/78 Code : 8480-6 BMI: 26.3 Code : 76780-1 Heart Rate 1 : 78 bpm Height: 5'9" SpO2: 98% Weight: 178 lbs 09/23/2018 Blood Pressure 1: 110/68 Code : 8480-6 BMI: 25.8 Code : 18240-3 Heart Rate 1 : 103 bpm Height: [...] Denies ongoing 01/12/2019 None Location in the [facility] 01/05/2019 None Quality aching 2018 None Quality [...] data Encounters Encounter Performer Location Codes Date ([id number]) [id number] EST. PATIENT, LEVEL IV Diagnosis: Generalized anxiety disorder[ICD10: F41.1] Diagnosis: Major depressive disorder, single episode, moderate[ICD10: F32.1] Diagnosis: Other fatigue[ICD10: R53.83] [facility] CPT-4: 22670 01/12/2019 ([id number]) [id number] EST. PATIENT, LEVEL IV Diagnosis: Mixed hyperlipidemia[ICD10: E78.2] Diagnosis: Generalized anxiety disorder[ICD10: F41.1] Diagnosis: Major depressive disorder, single episode, moderate[ICD10: F32.1] Diagnosis: Vitamin D deficiency, unspecified[ICD10: E55.9] Diagnosis: Other fatigue[ICD10: R53.83] [facility] CPT-4: 07601 01/05/2019 OFFICE VISIT, NEW - LEVEL 4 Diagnosis: Other fatigue[ICD10: R53.83] Diagnosis: Generalized anxiety disorder[ICD10: F41.1] Diagnosis: Major depressive disorder, single episode, moderate[ICD10: F32.1] [facility] CPT-4: 40412 09/23/2018 Plan of Care Planned Activity Notes Codes Status Date Referral: [facility] Patient informed. Referral info faxed to [phone] Completed 02/21/2019 Visit Plan: Anxiety -not well controlled-start buspar 5mg twice daily -continue lexapro -monitor symptoms and follow up in 1 month, sooner if needed Fatigue-family history of cardiovascular disease-refer to Dr Knapp for evaluation Abnormal sleep study-awaiting report -Dr Robertson is going to manage 01/12/2019 Appointment: Klaudia Jeffrey WPtel: [address] [place], [place] [phone] (30 min) [facility] 01/12/2019 Patient Education: Patient Medication Summary Completed 01/12/2019 Patient Education: Depression Completed 01/12/2019 Care Plan: Referral Order SNOMED-CT : 453754662 Pending 01/12/2019 Visit Plan: Hyperlipidemia - pt [...] def-check level 01/05/2019 Appointment: Klaudia Jeffrey WPtel: [address] [place], [place] [phone] (30 min) [facility] 01/05/2019 Patient Education: Patient Medication Summary Completed [...] patient. 09/23/2018 Appointment: Lorrie [facility]Ptel[facility] [phone] [facility] New Patient 09/23/2018 Patient Education: Patient Medication Summary Completed 09/23/2018 Patient Education: Depression Completed 09/23/2018 Referral: [facility] Referral Appointment Requested Instructions Comment Dr Knapp [...] patient. CHECK LABS TESTOSTERONE -NEEDS TO BE [employer]YS LEXAPRO 10MG DAILY . Hyperlipidemia - pt [...] level CHECK LABS TESTOSTERONE -NEEDS TO BE [employer] LEXAPRO 10MG DAILY . Hyperlipidemia - pt [...]
--- OUTSIDE RECORDS SUMMARY | 2019-01-26 13:16 | XMS REPORT | CCD ---
Author Author [facility] Address [address] [place] [address] Phone Care Team Providers Care Tube Backer Name Role Phone PP Unavailable CCM Unavailable Summary Purpose Interface Exchange Insurance Providers Payer name Policy type / Coverage type Covered libertarian ID Effective Begin Date Effective End Date Blue Cross Blue [facility] Blue Cross/Blue Shield [id number] Unknown Family history Mother Diagnosis Age At Onset Heart Attack Unknown Social History Social History Element Codes Description Effective Dates Marital status Unknown alfredo 09/23/2018 Number of children Unknown 0 09/23/[address]: 750531171 Never smoker 09/23/[address]: 428904281 Never drinks alcohol 09/23/2018 Allergies, Adverse Reactions, Alerts Allergies, Adverse Reactions, Alerts data not found Past Medical History Illness Codes Condition Status Onset Date Resolved Date Generalized anxiety disorder ICD-9: 300.00 ICD-10: F41.1 Active 09/23/2018 Unknown Major depressive disorder, single episode, moderate ICD-9: 296.22 ICD-10: F32.1 Active 09/23/2018 Unknown Other fatigue ICD-9: 780.79 ICD-10: R53.83 Active 09/23/2018 Unknown Problems Condition Codes Effective Dates Condition Status Generalized anxiety disorder ICD-9: 300.00 ICD-10: F41.1 09/23/2018 Active Major depressive disorder, single episode, moderate ICD-9: 296.22 ICD-10: F32.1 09/23/2018 Active Other fatigue ICD-9: 780.79 ICD-10: R53.83 09/23/2018 Active Medications Medication Codes Instructions Start Date Stop Date Status Fill Instructions hydrochlorothiazide 25 mg tablet RxNorm: 470592 1 Tablet(s) PO daily No Start Date Active Stelara 45 mg/0.5 mL subcutaneous solution RxNorm: 3487457 1 Milliliter(s) SQ q three months No Start Date Active Medication Administered No Medication Administered data Immunizations No Immunization data Assessments Condition Codes Effective Dates Major depressive disorder, single episode, moderate ICD-10: F32.1 ICD-9: 296.22 09/23/2018 Generalized anxiety disorder ICD-10: F41.1 ICD-9: 300.00 09/23/2018 Other fatigue ICD-10: R53.83 ICD-9: 780.79 09/23/2018 Reason For Visit Reason For Visit Effective Dates Notes depression 09/23/2018 Results No Results data Review of Systems System Result Effective Dates Constitutional No recent illness 2017 Constitutional No [...] gait and station Overall: normal gait 09/23/2018 None Full Exam - General 1994 Neurologic cranial nerves Overall: crainial nerves 2 - 12 grossly intact 09/23/2018 None Full Exam - General 1994 Psychiatric orientation/consciousness Overall: oriented to person, place and time 09/23/2018 None Full Exam - General 1994 Psychiatric mood and affect Overall: normal mood and affect 09/23/2018 None Full Exam - General 1994 Psychiatric appearance Overall: well-groomed, good eye contact 09/23/2018 None Procedures No Procedures data Vital Signs Date Vital 09/23/2018 Blood Pressure 1: 110/68 Code : 8480-6 BMI: 25.8 Code : 73527-8 Heart Rate 1 : 103 bpm Height: 5'9" SpO2: 98% Weight: 175 lbs Functional Status No Functional Status data History of Present Illness Symptom Name Status Result Effective Date Notes depression Onset and Resolution sudden in onset [...] data Encounters Encounter Performer Location Codes Date OFFICE VISIT, NEW - LEVEL 4 Diagnosis: Other fatigue[ICD10: R53.83] Diagnosis: Generalized anxiety disorder[ICD10: F41.1] Diagnosis: Major depressive disorder, single episode, moderate[ICD10: F32.1] [facility] CPT-4: 74857 09/23/2018 Plan of Care Planned Activity Notes Codes Status Date Care Plan: Comp Metabolic Pending 09/26/2018 Care [...] this patient. 09/23/2018 Appointment: Lorrie Salas WPtel[facility] [facility] Patient 09/23/2018 Patient Education: Patient Medication Summary Completed 09/23/2018 Patient Education: Depression Completed 09/23/2018 Instructions Comment . Fatigue - will check labs and [...]
--- OUTSIDE RECORDS SUMMARY | 2019-01-26 13:16 | XMS REPORT | CCD ---
Author Author [facility] Address [address] [place] [address] Phone Care Team Providers Care Patternmaker Helper Name Role Phone PP Unavailable CCM Unavailable Summary Purpose Interface Exchange Insurance Providers Payer name Policy type / Coverage type Covered constitution party ID Effective Begin Date Effective End Date Blue Cross Blue Shield [facility] Blue Cross/Blue Shield [id number] Unknown Family history Mother Diagnosis Age At Onset Heart Attack Unknown Social History Social History Element Codes Description Effective Dates Marital status Unknown alfredo 09/23/2018 Number of children Unknown 0 09/23/[address]: 267720551 Never smoker 09/23/[address]: 271636578 Never drinks alcohol 09/23/2018 Allergies, Adverse Reactions, Alerts Allergies, Adverse Reactions, Alerts data not found Past Medical History Illness Codes Condition Status Onset Date Resolved Date Generalized anxiety disorder ICD-9: 300.00 ICD-10: F41.1 Active 09/23/2018 Unknown Major depressive disorder, single episode, moderate ICD-9: 296.22 ICD-10: F32.1 Active 09/23/2018 Unknown Mixed hyperlipidemia ICD-9: 272.2 ICD-10: E78.2 Active 01/05/2019 Unknown Other fatigue ICD-9: 780.79 ICD-10: R53.83 Active 09/23/2018 Unknown Vitamin D deficiency, unspecified ICD-9: 268.9 ICD-10: E55.9 Active 01/05/2019 Unknown Problems Condition Codes Effective Dates Condition Status Generalized anxiety disorder ICD-9: 300.00 ICD-10: F41.1 09/23/2018 Active Major depressive disorder, single episode, moderate ICD-9: 296.22 ICD-10: F32.1 09/23/2018 Active Mixed hyperlipidemia ICD-9: 272.2 ICD-10: E78.2 01/05/2019 Active Other fatigue ICD-9: 780.79 ICD-10: R53.83 09/23/2018 Active Vitamin D deficiency, unspecified ICD-9: 268.9 ICD-10: E55.9 01/05/2019 Active Medications Medication Codes Instructions Start Date Stop Date Status Fill Instructions Lexapro 10 mg tablet RxNorm: 981677 1 Tablet(s) PO QPM 201807/03/2019 Active Vitamin D2 50,000 unit capsule RxNorm: 9961913 1 Capsule(s) PO QW and take vit d 2000 1 tab one day with weekly dose 10/05/2018 12/27/2018 Inactive pravastatin 20 mg tablet RxNorm: 994748 1 Tablet(s) PO QPM 02/01/2019 Active Vitamin D2 50,000 unit capsule RxNorm: 8863341 1 Capsule(s) PO QW and take vit d 2000 1 tab one day with weekly dose 10/05/2018 10/04/2018 Inactive pravastatin 20 mg tablet RxNorm: 973409 1 Tablet(s) PO QPM 10/04/2018 Inactive hydrochlorothiazide 25 mg tablet RxNorm: 383437 1 Tablet(s) PO daily No Start Date Active Stelara 45 mg/0.5 mL subcutaneous solution RxNorm: 8228557 1 Milliliter(s) SQ q three months No Start Date Active Medication Administered No Medication Administered data Immunizations No Immunization data Assessments Condition Codes Effective Dates Mixed hyperlipidemia ICD-10: E78.2 ICD-9: 272.2 01/05/2019 Generalized anxiety disorder ICD-10: F41.1 ICD-9: 300.00 01/05/2019 Vitamin D deficiency, unspecified ICD-10: E55.9 ICD-9: 268.9 01/05/2019 Major depressive disorder, single episode, moderate ICD-10: F32.1 ICD-9: 296.22 01/05/2019 Other fatigue ICD-10: R53.83 ICD-9: 780.79 01/05/2019 Reason For Visit Reason For Visit Effective Dates Notes abdominal pain 01/05/2019 depression 09/23/2018 Results Observation Observation Code Item Item Code Result Date Cbc With Differential Ord2 WBC 7.51 K/ul [...] 30.3 pg 01/05/2019 Cbc With Differential Ord2 [place]% 8.0 % 01/05/2019 Cbc With Differential Ord2 [...] 2.09 K/ul 01/05/2019 Cbc With Differential Ord2 [place] ABS# 0.6 K/ul 01/05/2019 Cbc With Differential Ord2 [place] ABS# 0.1 K/ul 01/05/2019 Cbc With Differential Ord2 [place] ABS# 0.0 K/ul 01/05/2019 Review of Systems System Result Effective Dates Constitutional No recent illness 2018 Constitutional No [...] No Procedures data Vital Signs Date Vital 01/05/2019 Blood Pressure 1: 110/78 Code : 8480-6 BMI: 26.3 Code : 87577-8 Heart Rate 1 : 78 bpm Height: 5'9" SpO2: 98% Weight: 178 lbs 09/23/2018 Blood Pressure 1: 110/68 Code : 8480-6 BMI: 25.8 Code : 28841-5 Heart Rate 1 : 103 bpm Height: 5'9" SpO2: 98% Weight: 175 lbs Functional Status No Functional Status data History of Present Illness Symptom Name Status Result Effective Date Notes Location in the [facility] 01/05/2019 None Quality aching 2018 None Quality [...] Directive data Encounters Encounter Performer Location Codes ([id number]) 49991 EST. PATIENT, LEVEL IV Diagnosis: Mixed hyperlipidemia[ICD10: E78.2] Diagnosis: Generalized anxiety disorder[ICD10: F41.1] Diagnosis: Major depressive disorder, single episode, moderate[ICD10: F32.1] Diagnosis: Vitamin D deficiency, unspecified[ICD10: E55.9] Diagnosis: Other fatigue[ICD10: R53.83] Klaudia Jessica MD, [facility] CPT-4: 56876 01/05/2019 OFFICE VISIT, NEW - LEVEL 4 Diagnosis: Other fatigue[ICD10: R53.83] Diagnosis: Generalized anxiety disorder[ICD10: F41.1] Diagnosis: Major depressive disorder, single episode, moderate[ICD10: F32.1] [facility] CPT-4: 37927 09/23/2018 Plan of Care Planned Activity Notes Codes Status Date Visit Plan: Hyperlipidemia - pt has been [...] sleep study Vitamin d def-check level 01/05/2019 Patient Education: Patient Medication Summary Completed 01/05/2019 Patient Education: Depression Completed 01/05/2019 Patient Education: Cholesterol Management Completed 01/05/2019 Care Plan: Comp Metabolic Pending 01/05/2019 Care Plan: Lipid Pending 01/05/2019 Care Plan: Vitamin D 25 Oh Pending 01/05/2019 Care Plan: Comp Metabolic Pending 09/26/2018 [...] appropriately prescribed for this patient. 09/23/2018 Appointment: Josue Lorrie WPtel: [facility] [facility] Patient 09/23/2018 Patient Education: Patient [...] patient. 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 Hyperlipidemia - pt [...]
--- OUTSIDE RECORDS SUMMARY | 2019-01-26 13:16 | XMS REPORT | CCD ---
Author Author [facility] Address [address] [place] [address] Phone Care Team Providers Care Systems Checkout Mechanic Name Role Phone PP Unavailable CCM Unavailable Summary Purpose Interface Exchange Insurance Providers Payer name Policy type / Coverage type Covered libertarian ID Effective Begin Date Effective End Date Blue Cross Blue Shield [facility] Blue Cross/Blue Shield [id number] Unknown Family history Mother Diagnosis Age At Onset Heart Attack Unknown Social History Social History Element Codes Description Effective Dates Marital status Unknown alfredo 09/23/2018 Number of children Unknown 0 09/23/[address]: 492721345 Never smoker 09/23/[address]: 657122086 Never drinks alcohol 09/23/2018 Allergies, Adverse Reactions, [...] Fill Instructions Lexapro 10 mg tablet RxNorm: 037735 1 Tablet(s) PO QPM 201807/03/2019 Active Vitamin D2 50,000 unit capsule RxNorm: 3153634 1 Capsule(s) PO QW and take vit d 2000 1 tab one day with weekly dose 10/05/2018 12/27/2018 Inactive pravastatin 20 mg tablet RxNorm: 302551 1 Tablet(s) PO QPM 02/01/2019 Active Vitamin D2 50,000 unit capsule RxNorm: 6983138 1 Capsule(s) PO QW and take vit d 2000 1 tab one day with weekly dose 10/05/2018 10/04/2018 Inactive pravastatin 20 mg tablet RxNorm: 015360 1 Tablet(s) PO QPM 10/04/2018 Inactive hydrochlorothiazide 25 mg tablet RxNorm: 430383 1 Tablet(s) PO daily No Start Date Active Stelara 45 mg/0.5 mL subcutaneous solution RxNorm: 9618453 1 Milliliter(s) SQ q three months No [...] 30.3 pg 01/05/2019 Cbc With Differential Ord2 [place]% 8.0 % 01/05/2019 Cbc With Differential Ord2 [...] 2.09 K/ul 01/05/2019 Cbc With Differential Ord2 [place] ABS# 0.6 K/ul 01/05/2019 Cbc With Differential [...] Code : 8480-6 BMI: 26.3 Code : 22802-5 Heart Rate 1 : 78 bpm Height: 5'9" SpO2: 98% Weight: 178 lbs 09/23/2018 Blood Pressure 1: 110/68 Code : 8480-6 BMI: 25.8 Code : 11101-6 Heart Rate 1 : 103 bpm Height: 5'9" SpO2: 98% Weight: 175 lbs Functional Status No Functional Status data History of Present Illness Symptom Name Status Result Effective Date Notes Location [facility] the [facility] [...] Directive data Encounters Encounter Performer Location Codes ([id number]) 82757 EST. PATIENT, LEVEL IV Diagnosis: Mixed hyperlipidemia[ICD10: E78.2] Diagnosis: Generalized anxiety disorder[ICD10: F41.1] Diagnosis: Major depressive disorder, single episode, moderate[ICD10: F32.1] Diagnosis: Vitamin D deficiency, unspecified[ICD10: E55.9] Diagnosis: Other fatigue[ICD10: R53.83] Klaudia Jessica MD, [facility] CPT-4: 12447 01/05/2019 OFFICE VISIT, NEW - LEVEL 4 Diagnosis: Other fatigue[ICD10: R53.83] Diagnosis: Generalized anxiety disorder[ICD10: F41.1] Diagnosis: Major depressive disorder, single episode, moderate[ICD10: F32.1] [facility] CPT-4: 04568 09/23/2018 Plan of Care Planned Activity Notes [...] this patient. 09/23/2018 Appointment: Lorrie Salas WPtel: [address] [place] [address] New Patient 09/23/2018 Patient Education: Patient Medication [...] patient. 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 Hyperlipidemia - pt [...]
--- OUTSIDE RECORDS SUMMARY | 2019-01-26 13:16 | XMS REPORT | CCD ---
Author Author [facility] Address [address] [place] [address] Phone Care Team Providers Care Credit Card Clerk Name Role Phone PP Unavailable CCM Unavailable Summary Purpose Interface Exchange Insurance Providers Payer name Policy type / Coverage type Covered republican ID Effective Begin Date Effective End Date Blue Cross Blue [facility] Blue Cross/Blue Shield [id number] Unknown Family history Mother Diagnosis Age At Onset Heart Attack Unknown Social History Social History Element Codes Description Effective Dates Marital status Unknown alfredo 09/23/2018 Number of children Unknown 0 09/23/[address]: 815244517 Never smoker 09/23/[address]: 296728698 Never drinks alcohol 09/23/2018 Allergies, Adverse Reactions, [...] Start Date Stop Date Status Fill Instructions Vitamin D2 50,000 unit capsule RxNorm: 9935578 1 Capsule(s) PO QW and take vit d 2000 1 tab one day with weekly dose 10/05/2018 12/27/2018 Active pravastatin 20 mg tablet RxNorm: 181733 1 Tablet(s) PO QPM 02/01/2019 Active Vitamin D2 50,000 unit capsule RxNorm: 1038623 1 Capsule(s) PO QW and take vit d 2000 1 tab one day with weekly dose 10/05/2018 10/04/2018 Inactive pravastatin 20 mg tablet RxNorm: 471685 1 Tablet(s) PO QPM 10/04/2018 Inactive hydrochlorothiazide 25 mg tablet RxNorm: 327971 1 Tablet(s) PO daily No Start Date Active Stelara 45 mg/0.5 mL subcutaneous solution RxNorm: 0692116 1 Milliliter(s) SQ q three months No [...] Code : 8480-6 BMI: 25.8 Code : 66238-1 Heart Rate 1 : 103 bpm Height: [...] moderate[ICD10: F32.1] [facility] CPT-4: 94145 09/23/2018 Plan of Care Planned Activity Notes [...] patient. 09/23/2018 Appointment: [facility]el[facility] [address] [facility] New Patient 09/23/2018 Patient Education: Patient Medication [...]
--- OUTSIDE RECORDS SUMMARY | 2019-01-26 13:16 | XMS REPORT | CCD ---
Author Author [facility] Address [address] [place] [address] Phone Care Team Providers Care Manager Telemetry Name Role Phone PP Unavailable CCM Unavailable Summary Purpose Interface Exchange Insurance Providers Payer name Policy type / Coverage type Covered libertarian ID Effective Begin Date Effective End Date Blue Cross Blue [facility] Blue Cross/Blue Shield [id number] Unknown Family history Mother Diagnosis Age At Onset Heart Attack Unknown Social History Social History Element Codes Description Effective Dates Marital status Unknown alfredo 09/23/2018 Number of children Unknown 0 09/23/[address]: 363575914 Never smoker 09/23/[address]: 430798279 Never drinks alcohol 09/23/2018 Allergies, Adverse Reactions, [...] Fill Instructions hydrochlorothiazide 25 mg tablet RxNorm: 863319 1 Tablet(s) PO daily No Start Date Active Stelara 45 mg/0.5 mL subcutaneous solution RxNorm: 5104084 1 Milliliter(s) SQ q three months No [...] Code : 8480-6 BMI: 25.8 Code : 64392-1 Heart Rate 1 : 103 bpm Height: [...] moderate[ICD10: F32.1] [facility] CPT-4: 63457 09/23/2018 Plan of Care Planned Activity Notes [...] this patient. 09/23/2018 Appointment: Lorrie Salas WPtel: [facility] New Patient 09/23/2018 Patient Education: Patient Medication [...]
--- OUTSIDE RECORDS SUMMARY | 2019-01-26 13:17 | XMS REPORT | Continuity of Care Document ---
Author Author [facility] Organization [facility] Address Unknown Phone Unavailable Allergies Active Description Code Type Severity Reaction Onset Reported/Identified Relationship to Patient Clinical Status Yes No Known Drug Allergies [id number] Drug Allergy Unknown N/A 08/29/2013 Medications There is no data. Problems Date Dx Coded Attending Type Code Diagnosis Diagnosed By 08/12/2017 ELSA PEREZ MD Ot N20.0 CALCULUS OF KIDNEY 08/12/2017 ELSA PEREZ MD, Ot Z01.818 ENCOUNTER FOR OTHER PREPROCEDURAL EXAMIN 08/18/2017 ELSA PEREZ MD Ot N20.0 CALCULUS OF KIDNEY 08/18/2017 ELSA PEREZ MD Ot N20.0 CALCULUS OF KIDNEY 08/23/2017 ELSA PEREZ MD Ot N20.0 CALCULUS OF KIDNEY 08/25/2017 ANA FRAGA, ELSA De La Rosa Ot N20.0 CALCULUS OF KIDNEY 09/09/2017 ELSA PEREZ MD Ot N20.9 URINARY CALCULUS, UNSPECIFIED 10/04/2017 ELSA PEREZ MD Ot R19.07 GENERALIZED INTRA-ABD AND PELVIC SWELLIN 10/27/2017 ELSA PEREZ MD Ot N20.9 URINARY CALCULUS, UNSPECIFIED 12/07/2017 ANA FRAGA, ELSA De La Rosa Ot N20.9 URINARY CALCULUS, UNSPECIFIED 12/13/2017 ELSA PEREZ MD Ot N20.9 URINARY CALCULUS, UNSPECIFIED 07/05/2018 ELSA PEREZ MD Ot N20.0 CALCULUS OF KIDNEY 07/05/2018 ELSA PEREZ MD Ot R19.07 GENERALIZED INTRA-ABD AND PELVIC SWELLIN 07/05/2018 ELSA PEREZ MD Ot N20.9 URINARY CALCULUS, UNSPECIFIED 07/08/2018 ELSA PEREZ MD Ot Z09 ENCNTR FOR F/U EXAM AFT TRTMT FOR COND O 07/08/2018 ELSA PEREZ MD Ot Z87.442 PERSONAL HISTORY OF URINARY CALCULI 07/20/2018 ELSA PEREZ MD Ot Z09 ENCNTR FOR F/U EXAM AFT TRTMT FOR COND O 07/20/2018 ELSA PEREZ MD Ot Z87.442 PERSONAL HISTORY OF URINARY CALCULI 08/10/2018 ELSA PEREZ MD Ot Z09 ENCNTR FOR F/U EXAM AFT TRTMT FOR COND O 08/10/2018 ELSA PEREZ MD Ot Z87.442 PERSONAL HISTORY OF URINARY CALCULI 09/26/2018 KIARRA FRAGA, KATE De La Rosa Ot E55.9 VITAMIN D DEFICIENCY, UNSPECIFIED 09/26/2018 KATE PLUNKETT MD A Ot R53.83 OTHER FATIGUE 10/07/2018 KATE PLUNKETT MD Ot E55.9 VITAMIN D DEFICIENCY, UNSPECIFIED 10/07/2018 KATE PLUNKETT MD A Ot R53.83 OTHER FATIGUE 01/11/2019 DAVID HERRMANN FLORIST'S DECORATOR Ot 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 Results Test Result Range Valproic Acid - 12/21/16 10:22 Methicillin resistant Staphylococcus aureus (MRSA) screening culture - 07:45 Methicillin resistant Staphylococcus aureus (MRSA) screening culture NEG NRG Measurement of weight of kidney stone - 09/08/17 16:42 Measurement of weight of kidney stone 2 % NRG Kidney stone composition determination See Note NRG Count of number of calculi 2 NRG Size of stone 1 to 4 NRG CD3+CD4+ (T4 helper) cells/100 cells in blood - 09/12/17 13:00 Timed urine calcium measurement (mass/volume) 315 % < 250 Urine oxalate detection 57 < 45 Urine uric acid measurement (mass/volume) 744 % < 700 Urine citrate measurement (mass/volume) 607 % > 320 Urine pH measurement 7.2 5.5-7.0 24 hour urine specimen volume measurement 1.71 % > 2.00 Sodium urate/total calculus mass ratio by infrared spectroscopy 205 % < 200 Sulfites [presence] in urine by test strip 9 < 30 Urine phosphate measurement (mass/volume) 987 % < 1100 Urine magnesium measurement (mass/volume) 144 % > 60 Urine calcium oxalate measurement 3.71 < 2.00 Urine calcium phosphate crystals detection by computer assisted method 7.26 < 2.00 24 hour urine sodium urate (saturation fraction) 4.36 < 2.00 Triple phosphate crystals detection in urine sediment by light microscopy 29.27 < 75.00 24 hour urine uric acid (saturation fraction) 0.14 < 2.00 Urine ammonium measurement 26 % 14-62 Urine potassium measurement 46 % 19-135 24 hour urine creatinine measurement (mass/time) 2044 % 800-2000 Clinical personal service workers review of results See Below NR Drug Screen + ETOH - 09/23/17 14:29 [employer] Field Supervisor Jonn Judd Donor ID By Photo ID Ethanol, Urine <10.00 mg/dL 20.00-80.00 Location [employer] Reason For Test Random Urine Amphetamines NEGATIVE Urine Barbiturates NEGATIVE Urine Benzodiazepines NEGATIVE Urine Cocaine NEGATIVE Urine MDMA NEGATIVE Urine Methadone NEGATIVE Urine Methamphetamines NEGATIVE Urine Opiates NEGATIVE Urine Oxycodone NEGATIVE Urine PCP NEGATIVE Urine THC Metabolite NEGATIVE Complete blood count (CBC) with automated white blood cell (WBC) differential - 09/24/18 09:27 Blood leukocytes automated count (number/volume) 4.5 10*3/uL 4.3-11.0 Blood erythrocytes automated count (number/volume) 4.94 10*6/uL 4.35-5.85 Venous blood hemoglobin measurement (mass/volume) 14.8 g/dL 13.3-17.7 Blood hematocrit (volume fraction) 45 % 40-54 Automated erythrocyte mean corpuscular volume 91 [foz_us] 80-99 Automated erythrocyte mean corpuscular hemoglobin (mass per erythrocyte) 30 pg 25-34 Automated erythrocyte mean corpuscular hemoglobin concentration measurement ( mass/volume) 33 g/dL 32-36 Automated erythrocyte distribution width ratio 13.5 % 10.0-14.5 Automated blood platelet count (count/volume) 229 10*3/uL 130-400 Automated blood platelet mean volume measurement 10.3 [foz_us] 7.4-10.4 Automated blood neutrophils/100 leukocytes 47 % 42-75 Automated blood lymphocytes/100 leukocytes 37 % 12-44 Blood monocytes/100 leukocytes 13 % 0-12 Automated blood eosinophils/100 leukocytes 3 % 0-10 Automated blood basophils/100 leukocytes 0 % 0-10 Blood neutrophils automated count (number/volume) 2.1 10*3 1.8-7.8 Blood lymphocytes automated count (number/volume) 1.6 10*3 1.0-4.0 Blood monocytes automated count (number/volume) 0.6 10*3 0.0-1.0 Automated eosinophil count 0.1 10*3/uL 0.0-0.3 Automated blood basophil count (count/volume) 0.0 10*3/uL 0.0-0.1 Comprehensive metabolic panel - 09/24/18 09:27 Serum or plasma sodium measurement (moles/volume) 139 mmol/L 135-145 Serum or plasma potassium measurement (moles/volume) 4.0 mmol/L 3.6-5.0 Serum or plasma chloride measurement (moles/volume) 106 mmol/L 98-107 Carbon dioxide 26 mmol/L 21-32 Serum or plasma anion gap determination (moles/volume) 7 mmol/L 5-14 Serum or plasma urea nitrogen measurement (mass/volume) 21 mg/dL 7-18 Serum or plasma creatinine measurement (mass/volume) 1.13 mg/dL 0.60-1.30 Serum or plasma urea nitrogen/creatinine mass ratio 19 NRG Serum or plasma creatinine measurement with calculation of estimated glomerular filtration rate > NRG Serum or plasma glucose measurement (mass/volume) 101 mg/dL 70-105 Serum or plasma calcium measurement (mass/volume) 9.1 mg/dL 8.5-10.1 Serum or plasma total bilirubin measurement (mass/volume) 0.9 mg/dL 0.1-1.0 Serum or plasma alkaline phosphatase measurement (enzymatic activity/volume) 55 U/L 40-136 Serum or plasma aspartate aminotransferase measurement (enzymatic activity/ volume) 17 U/L 5-34 Serum or plasma alanine aminotransferase measurement (enzymatic activity/volume ) 21 U/L 0-55 Serum or plasma protein measurement (mass/volume) 7.4 g/dL 6.4-8.2 Serum or plasma albumin measurement (mass/volume) 3.9 g/dL 3.2-4.5 CALCIUM CORRECTED 9.2 mg/dL 8.5-10.1 Lipid 1996 panel - 09/24/18 09:27 Serum or plasma triglyceride measurement (mass/volume) 58 mg/dL <150 Serum or plasma cholesterol measurement (mass/volume) 206 mg/dL < 200 Serum or plasma cholesterol in HDL measurement (mass/volume) 46 mg/ dL 40-60 Cholesterol in LDL [mass/volume] in serum or plasma by direct assay 156 mg/dL 1-129 Serum or plasma cholesterol in VLDL measurement (mass/volume) 12 mg/ dL 5-40 THYROID STIMULATING HORMONE - 09/24/18 09:27 THYROID STIMULATING HORMONE 0.88 u[iU]/mL 0.35-4.94 Serum or plasma testosterone measurement (mass/volume) - 09/24/18 09:27 Testosterone [mass or moles/volume] in serum or plasma 500.33 % 220.91-715.81 TESTOSTERONE FREE TOTAL MALE - 01/14/19 08:35 Testosterone free [mass or moles/volume] in serum or plasma 53.6 pg/ mL 47.0-244.0 Serum ragweed IgE antibody assay 401.0 % 300.0-720.0 Encounters ACCT No. Visit Date/Time Discharge Status Pt. Type Provider Facility Loc./Unit Complaint [id number] 01/14/2019 08:17:00 01/14/2019 23:59:59 CLS Outpatient DAVID HERRMANN [facility] LAB FATIGUE [id number] 01/10/2019 12:54:00 01/10/2019 13:35:00 DIS Outpatient DAVID HERRMANN [facility] SLEEP HYPERSOMNIA G47.10 [id number] 09/24/2018 09:00:00 09/24/2018 23:59:59 CLS Outpatient KATE PLUNKETT MD [facility] LAB FATIGUE,VIT D DEF [id number] 08/08/2018 00:55:00 08/08/2018 23:59:59 CLS Preadmit ELSA PEREZ MD [facility] RAD H/O STONES [id number] 07/05/2018 16:28:00 07/08/2018 00:01:00 DIS Outpatient ELSA PEREZ MD [facility] RAD H/O STONES [id number] 12/08/2017 00:27:00 12/08/2017 23:59:59 CLS Preadmit ELSA PEREZ MD [facility] LAB STONES [id number] 09/12/2017 15:35:00 12/07/2017 00:01:00 DIS Outpatient ELSA PEREZ MD [facility] LAB STONES [id number] 09/08/2017 14:18:00 09/08/2017 23:59:59 CLS Outpatient ELSA PEREZ MD [facility] RAD BILATERAL RENAL STONES [id number] 08/18/2017 07:00:00 08/18/2017 12:00:00 DIS Outpatient ELSA PEREZ MD [facility] SDC BILATERAL RENAL STONES [id number] 08/12/2017 05:42:00 08/12/2017 11:15:00 DIS Outpatient ELSA PEREZ MD [facility] PREOP BILATERAL RENAL STONES [id number] 08/05/2017 14:50:00 08/05/2017 23:59:59 CLS Outpatient ELSA PEREZ MD [facility] RAD HISTORY OF STONES [id number] 06/07/2014 16:36:00 06/07/2014 23:59:59 CLS Preadmit ELSA PEREZ MD [facility] LAB STONES [id number] 06/14/2013 16:53:00 09/12/2013 00:01:00 DIS Outpatient [id number] 08/30/2013 06:40:00 08/30/2013 11:20:00 DIS Outpatient [id number] 08/29/2013 10:41:00 08/29/2013 23:59:59 CLS Outpatient [id number] 08/28/2013 11:34:00 08/28/2013 23:59:59 CLS Outpatient [id number] 08/04/2018 11:43:00 08/04/2018 23:59:00 DIS Outpatient [facility], PHY [id number] 09/23/2017 13:50:00 09/23/2017 23:59:00 DIS Outpatient UNLISTED, UNLISTED [id number] 07/30/2017 12:38:00 07/30/2017 23:59:00 DIS Outpatient [facility], PHY [id number] 12/21/2016 10:17:00 12/21/2016 23:59:00 DIS Outpatient Halina Gaitan [id number] 09/22/2018 09:07:46 09/22/2018 23:59:59 CLS Outpatient
[2019-01-26] MEDS ORDERED: ASPIRIN 325 MG (5 GR) TABLET PO ONE (15:45)
--- NOTE | 2019-01-26 15:53 | ED Chest Pain ---
General Chief Complaint: General Problems/Pain Stated Complaint: PAIN IN SIDE NUMB ARM WEAK Nursing Triage Note: Pt reports LLQ pain. Pt reports fatigue x1 month that he has been seeing Dr. Jessica for. Pt reports L arm tingling sensation x last few days and shakiness today. Nursing Sepsis Screen: No Definite Risk Source: patient Exam Limitations: no limitations History of Present Illness Date Seen by Provider: Jan 26, 2019 Time Seen by Provider: 15:30 Initial Comments Here with report of fatigue over the last month with left arm tingling today and feeling shaky. Also noted left-sided abdominal pain. He is due to follow-up for cardiology evaluation in [place] but is trying to move that to [place] with Dr. Hills. Denies sweating, nausea, vomiting or difficulty with urination. Denies fever or chills. Tiredness is been going on for several months. Of note he did start a statin in September. He is not sure if weakness started soon after that or not. Timing/Duration: intermittent, other (4 weeks) Severity/Quality: mild, other (tingling with aching to the left side of the abdomen) Location: abdomen (and left side), other (left arm) Radiation: no radiation Activities at Onset: none Prior CP/Workup: no prior chest pain Modifying Factors: improves with rest ASA po MATERIALS BUYER: No NTG SL MATERIALS BUYER: No Associated Symptoms: abdominal pain; No diaphoresis, No dizziness, No fever/ chills, No nausea/vomiting, No shortness of breath; weakness Allergies and Home Medications Allergies Coded Allergies: No Known Drug Allergies (Unverified , 08/29/13) Home Medications Hydrocodone/Acetaminophen 1 Each Tablet, 1-2 EACH PO Q4H PRN for PAIN Prescribed by: JESSICA NASH on 08/18/171120 Nitrofurantoin Macrocrystal 100 Mg Capsule, 100 MG PO BID Prescribed by: JESSICA NASH on 08/18/171120 Tamsulosin HCl 0.4 Mg Cap, 0.4 MG PO DAILY Prescribed by: JESSICA NASH on 08/18/171120 Patient Home Medication List Home Medication List Reviewed: Yes Review of Systems Review of Systems Constitutional: see HPI; No chills, No fever; malaise, weakness EENTM: No Symptoms Reported Respiratory: No Symptoms Reported Cardiovascular: Denies Chest Pain, Denies Lightheadedness Gastrointestinal: Abdominal Pain; Denies Diarrhea, Denies Nausea, Denies Vomiting Genitourinary: No Symptoms Reported Musculoskeletal: no symptoms reported; No joint pain; muscle pain Skin: no symptoms reported Psychiatric/Neurological: Anxiety; Denies Depressed Endocrine: No Symptoms Reported All Other Systems Reviewed Negative Unless Noted: Yes Past Eymqdgh-Qjfqtl-Gazeqq Hx Past Med/Social Hx: Reviewed Nursing Past Med/Soc Hx Patient Social History Alcohol Use: Denies Use Recreational Drug Use: No Smoking Status: Never a Smoker Recent Foreign Travel: No Contact w/Someone Who Travel: No Recent Infectious Disease Expo: No Recent Hopitalizations: No Seasonal Allergies Seasonal Allergies: No Past Medical History Surgeries: No Respiratory: No Cardiac: No Neurological: No Genitourinary: Yes Kidney Stones Gastrointestinal: Yes (ELEVATED LIVER ENZYMES) Liver Disease/Jaundice Musculoskeletal: No Endocrine: No Cancer: No Psychosocial: No Integumentary: No Blood Disorders: No Family Medical History Reviewed Nursing Family Hx Physical Exam Vital Signs Vital Signs - First Documented 01/26/19 13:22 Temp 98.0 Pulse 87 Resp 18 B/P (MAP) 147/84 (105) O2 Delivery Room Air Capillary Refill : Less Than 3 Seconds Height, Weight, BMI Height: 5'9.00" Weight: 175lbs. 0.0oz. 79.787916mc; 26.9 BMI Method:Stated General Appearance: No Apparent Distress, WD/WN HEENT: PERRL/EOMI, Pharynx Normal Neck: Non Tender, Supple Respiratory: Lungs Clear, Normal Breath Sounds Cardiovascular: Regular Rate, Rhythm, No Murmur Gastrointestinal: Non Tender, Soft Extremity: Normal Range of Motion, Non Tender Neurologic/Psychiatric: Alert, Oriented x3 Skin: Normal Color, Warm/Dry Progress/Results/Core Measures Results/Orders Lab Results Laboratory Tests Test 01/26/19 15:55 Range/Units White Blood Count 7.2 4.3-11.0 10^3/uL Red Blood Count 4.54 4.35-5.85 10^6/uL Hemoglobin 13.8 13.3-17.7 G/DL Hematocrit 42 40-54 % Mean Corpuscular Volume 91 80-99 FL Mean Corpuscular Hemoglobin 30 25-34 PG Mean Corpuscular Hemoglobin Concent 33 32-36 G/DL Red Cell Distribution Width 13.6 10.0-14.5 % Platelet Count 228 130-400 10^3/uL Mean Platelet Volume 10.5 H 7.4-10.4 FL Neutrophils (%) (Auto) 63 42-75 % Lymphocytes (%) (Auto) 26 12-44 % Monocytes (%) (Auto) 9 0-12 % Eosinophils (%) (Auto) 2 0-10 % Basophils (%) (Auto) 0 0-10 % Neutrophils # (Auto) 4.6 1.8-7.8 X 10^3 Lymphocytes # (Auto) 1.9 1.0-4.0 X 10^3 Monocytes # (Auto) 0.7 0.0-1.0 X 10^3 Eosinophils # (Auto) 0.1 0.0-0.3 10^3/uL Basophils # (Auto) 0.0 0.0-0.1 10^3/uL Prothrombin Time 13.4 12.2-14.7 SEC INR Comment 1.0 0.8-1.4 Activated Partial Thromboplast Time 31 24-35 SEC D-Dimer 0.30 0.00-0.49 UG/ML Sodium Level 138 135-145 MMOL/L Potassium Level 4.2 3.6-5.0 MMOL/L Chloride Level 108 H 98-107 MMOL/L Carbon Dioxide Level 26 21-32 MMOL/L Anion Gap 4 L 5-14 MMOL/L Blood Urea Nitrogen 22 H 7-18 MG/DL Creatinine 1.15 0.60-1.30 MG/DL Estimat Glomerular Filtration Rate > 60 BUN/Creatinine Ratio 19 Glucose Level 91 70-105 MG/DL Calcium Level 8.9 8.5-10.1 MG/DL Corrected Calcium 9.1 8.5-10.1 MG/DL Magnesium Level 2.5 H 1.8-2.4 MG/DL Total Bilirubin 0.5 0.1-1.0 MG/DL Aspartate Amino Transf (AST/SGOT) 18 5-34 U/L Alanine Aminotransferase (ALT/SGPT) 18 0-55 U/L Alkaline Phosphatase 63 40-136 U/L Total Creatine Kinase 110 30-200 U/L Myoglobin 40.8 10.0-92.0 NG/ML Troponin I < 0.028 <0.028 NG/ML Total Protein 7.0 6.4-8.2 GM/DL Albumin 3.7 3.2-4.5 GM/DL Lipase 32 8-78 U/L Thyroid Stimulating Hormone (TSH) 0.95 0.35-4.94 UIU/ML My Orders Orders - HARPREET TRAN MD Cbc With Automated Diff (01/26/19 15:45) Magnesium (01/26/19 15:45) Chest 1 View, Ap/Pa Only (01/26/19 15:45) Ekg Tracing (01/26/19 15:45) Cardiac Profile 1 (01/26/19 15:45) Comprehensive Metabolic Panel (01/26/19 15:45) Myoglobin Serum (01/26/19 15:45) Protime With Inr (01/26/19 15:45) Partial Thromboplastin Time (01/26/19 15:45) O2 (01/26/19 15:45) Monitor-Rhythm Ecg Trace Only (01/26/19 15:45) Lipid Panel (01/27/19 06:00) Saline Lock/Iv-Start (01/26/19 15:45) Lipase (01/26/19 15:45) Fibrin Degradation Products (01/26/19 15:45) Aspirin Tablet (Aspirin Tablet) (01/26/19 15:45) Creatine Kinase (01/26/19 15:56) Thyroid Stimulating Hormone (01/26/19 15:56) Medications Given in ED Current Medications Medications Dose Ordered Sig/Viridiana Route Start Time Stop Time Status Last Admin Dose Admin Aspirin 325 mg ONCE ONCE PO 01/26/19 15:45 01/26/19 15:48 DC 01/26/19 16:00 325 MG Vital Signs/I&O 01/26/19 13:22 Temp 98.0 Pulse 87 Resp 18 B/P (MAP) 147/84 (105) O2 Delivery Room Air Blood Pressure Mean: 105 Progress Progress Note : Progress Note Seen and evaluated. IV, labs, EKG, chest x-ray, ASA 324 mg by mouth ordered. Monitor patient. Patient initially presented with fatigue but during evaluation it was found out about the atypical chest pain component and chest pain protocol initiated at that time. 1810: No acute findings. Patient is pain-free. I did discuss the case with Dr. Hills. He will happily see him in the office on Wednesday and patient and family were very happy about that. He does have borderline blood pressure control and that should be addressed. I will let Dr. Hills and Dr. Jessica address that as outpatient. There is also some concerns related to his statin and he will discuss that with Dr. Hills on Wednesday. Patient reports history of reflux and thinks that that may be part of the problem as well. He will trial of omeprazole as outpatient and discuss that with Dr. Jessica. I will send a copy of the chart by Dr. Hills and Dr. Jessica. Discharged home with return precautions. Patient verbalize understanding instructions and agreement with plan. Initial ECG Impression Date: Jan 26, 2019 Initial ECG Impression Time: 15:50 Initial ECG Rate: 65 Initial ECG Rhythm: Normal Sinus Initial ECG Comparisson: Changed Comment Sinus rhythm with borderline left axis deviation. New from 30 July 2009. No evidence of ST elevation ME. Interpreted by me. Diagnostic Imaging Diagonstic Imaging: Xray Plain Films/CT/US/NM/MRI: chest Comments NAME: DELROYNASIMA D [facility] REC#: [id number] PT STATUS: REG ER : 1955 PHYSICIAN: HARPREET TRAN MD ADMIT DATE: 01/26/19/ER Signed Date of Exam: 01/26/19 CHEST 1 VIEW, AP/PA ONLY INDICATION: Fatigue, pain and left arm tingling. EXAMINATION: Frontal chest was obtained at 4:14 p.m. COMPARISON: 07/30/2009. FINDINGS: Heart is borderline in size. Mediastinal silhouette is unremarkable. The lungs are clear. There is no pneumothorax or pleural fluid. IMPRESSION: Borderline heart size with no acute process in the chest. Dictated by: Dictated on workstation # [id number] Dict: 01/26/19 1619 Trans: 01/26/19 170 Interpreted by: NOAH BEAVER MD Electronically signed by: NOAH BEAVER MD 01/26/19 170 Departure Impression Primary Impression: Chest pain Qualified Codes: R07.9 - Chest pain, unspecified Disposition: 01 HOME, SELF-CARE Condition: Improved Departure-Patient Inst. Decision time for Depature: 18:25 Referrals: KATE JESSICA MD (PCP/Family) Primary Care Physician BRANNON HILLS MD Patient Instructions: Chest Pain (DC) Add. Discharge Instructions: All discharge instructions reviewed with patient and/or family. Voiced understanding. Call Dr. Hills's office in the morning for appointment on Wednesday. Let them know that your case was discussed with Dr. Hills and he wants to see you on Wednesday. You may take [id number] omeprazole 20 mg once or twice daily as needed for stomach upset. Discuss with Dr. Jessica and/or Dr. Hills regarding your medicine for your cholesterol control. You can discussed with Dr. Jessica regarding your stomach problems as you should probably get further evaluation including upper endoscopy (scope) to further evaluate your stomach. Return for worse pain, fever, vomiting, weakness, breathing problems or other concerns as needed. Copy Copies To 1: BRANNON HILLS MD Copies To 2: KATE JESSICA MD, TIMOTHY D MD Jan 26, 2019 15:53
[2019-01-26 16:05] LABS: BASOPHILS % (AUTO) 0 % (0-10); EOSINOPHILS # (AUTO) 0.1 10^3/uL (0.0-0.3); EOSINOPHILS % (AUTO) 2 % (0-10); HEMATOCRIT 42 % (40-54); HEMOGLOBIN 13.8 G/DL (13.3-17.7); LYMPHOCYTES # (AUTO) 1.9 X 10^3 (1.0-4.0); LYMPHOCYTES % (AUTO) 26 % (12-44); MEAN CORPUSCULAR HEMOGLOBIN 30 PG (25-34); MEAN CORPUSCULAR HGB CONC 33 G/DL (32-36); MEAN CORPUSCULAR VOLUME 91 FL (80-99); MEAN PLATELET VOLUME 10.5 FL (7.4-10.4); MONOCYTES # (AUTO) 0.7 X 10^3 (0.0-1.0); MONOCYTES % (AUTO) 9 % (0-12); NEUTROPHILS # (AUTO) 4.6 X 10^3 (1.8-7.8); NEUTROPHILS % (AUTO) 63 % (42-75); PLATELET COUNT 228 10^3/uL (130-400); RED CELL DISTRIBUTION WIDTH 13.6 % (10.0-14.5); WHITE BLOOD COUNT 7.2 10^3/uL (4.3-11.0)
--- NOTE | 2019-01-26 16:30 | Diagnostic Imaging Report ---
INDICATION: Fatigue, pain and left arm tingling. EXAMINATION: Frontal chest was obtained at 4:14 p.m. COMPARISON: 07/30/2009. FINDINGS: Heart is borderline in size. Mediastinal silhouette is unremarkable. The lungs are clear. There is no pneumothorax or pleural fluid. IMPRESSION: Borderline heart size with no acute process in the chest. Dictated by: Dictated on workstation # [id number]
[2019-01-26 16:34] LABS: ALANINE AMINOTRANSFERASE 18 U/L (0-55); ALBUMIN 3.7 GM/DL (3.2-4.5); ALKALINE PHOSPHATASE 63 U/L (40-136); BILIRUBIN,TOTAL 0.5 MG/DL (0.1-1.0); BUN/CREATININE RATIO 19; CALCIUM 8.9 MG/DL (8.5-10.1); CARBON DIOXIDE 26 MMOL/L (21-32); CHLORIDE 108 MMOL/L (98-107); CREATININE SERUM 1.15 MG/DL (0.60-1.30); GFR ESTIMATED > 60; GLUCOSE 91 MG/DL (70-105); LIPASE 32 U/L (8-78); MAGNESIUM 2.5 MG/DL (1.8-2.4); POTASSIUM 4.2 MMOL/L (3.6-5.0); SODIUM 138 MMOL/L (135-145)
[2019-01-26 16:56] LABS: MYOGLOBIN SERUM 40.8 NG/ML (10.0-92.0)
[2019-01-26 17:09] LABS: PROTHROMBIN TIME PATIENT 13.4 SEC (12.2-14.7)
[2019-01-26 18:56] VITALS: BP 131/93
== END 2019-01-26 18:56 | disposition home or self-care (01) ==
LOC: EDUNIT# 13:01 → ER 13:03
DX: R07.9 Chest pain, unspecified (principal); Z87.442 Personal history of urinary calculi; Z87.19 Personal history of other diseases of the digestive system
CPT/HCPCS: 36415; 71045; 80053; 82550; 83690; 83735; 83874; 84443; 84484; 85025; 85379; 85610; 85730; 93005; 93041

== ENCOUNTER → 2019-02-01 | Outpatient (CLI) | payer BC ==
[~2019-02-01] VITALS: Ht 175.3 cm; Wt 81.6 kg
[~2019-02-01] MED LIST changes: +CATHETER FLUSH 10 ML SYR IV PRN; +REGADENOSON 0.4 MG/5 ML SYR (LEXISCAN) IV ONE
[2019-02-01 13:32] VITALS: BP 106/68
--- NOTE | 2019-02-02 06:40 | STRESS TEST ---
DATE OF SERVICE: AN EXERCISE MYOVIEW STRESS TEST REPORT REFERRING PHYSICIAN: Dr. Jessica. Baseline heart rate is 65, baseline blood pressure 134/97. Baseline EKG is sinus rhythm with occasional PVCs. SUMMARY: The patient was injected with 10.79 mCi of technetium-99 Myoview and the resting images were obtained and the patient started exercising with a baseline heart rate, blood pressure and EKG mentioned above. The patient was able to exercise for 2 minutes on standard Ricky protocol, unable to achieve target heart rate. Test was terminated and converted to Lexiscan Myoview stress test. The patient received 0.4 mg of Lexiscan followed by 32.7 mCi of technetium-99 Myoview. Throughout the test, there were no EKG changes. The resting and stress images were reviewed and compared in the short axis, horizontal long axis, and vertical long axis views. Review of the images showed diaphragmatic attenuation with mild decreased uptake at the inferoapical segment and inferolateral wall with subtle reversibility, no significant ischemia was noted. SSS is 4, SDS 2, TID value 0.94. On the gated images, the left ventricle appeared to be normal size with normal contractility. Calculated ejection fraction 53%. CONCLUSION: 1. The patient was unable to exercise on treadmill to achieve target heart rate. Test was converted to Lexiscan Myoview stress test. 2. The patient tolerated Lexiscan well. 3. Diaphragmatic attenuation with typical male pattern. No significant ischemia or infarction was noted. 4. Normal left ventricular size with normal contractility. Calculated ejection fraction 53%. Job ID: [id number] DocumentID: [id number] Dictated Date: 02/02/2019 06:21:59 Integrated Logistics Operations Manager Date: 02/02/2019 06:39:58 Dictated By: BRANNON GALAVIZ MD
== END ==
LOC: CARD 10:58
PROVIDERS: ATTEND Internal Medicine Cardiovascular Disease
DX: R07.9 Chest pain, unspecified (principal); E78.2 Mixed hyperlipidemia; R42 Dizziness and giddiness; Z82.49 Family history of ischemic heart disease and other diseases of the circulatory system
CPT/HCPCS: 78452; 93017; 93306

== ENCOUNTER → 2020-01-09 | Outpatient (CLI) | payer BC ==
[~2020-01-09] MED LIST changes: -CATHETER FLUSH 10 ML SYR IV PRN; -REGADENOSON 0.4 MG/5 ML SYR (LEXISCAN) IV ONE; -TAMS0.4C98 PO; +TMSL.4C PO
--- NOTE | 2020-01-09 16:56 | Diagnostic Imaging Report ---
EXAMINATION: Supine abdomen at 4:49 p.m. INDICATION: Nephrolithiasis. FINDINGS: The previous exam of 07/05/2018 noted several calculi overlying the left kidney. Those calcific densities are again evident and stable but do not seem to have changed significantly. There is no evidence for nephrolithiasis on the right although the right kidney is effectively obscured by overlying bowel gas and fecal material. There are no calcifications in the pelvis. The bowel gas pattern is nonspecific. There is a moderate amount of fecal material throughout the colon. There is no mass or organomegaly appreciated. The osseous structures are intact. IMPRESSION: 1. The calculi overlying the left kidney seen previously are again evident and do not appear to have changed significantly. 2. There is no other evidence for nephrolithiasis or urolithiasis. 3. If there is clinical concern regarding obstruction of either collecting system by a calculus, then CT would be recommended for further study. Dictated by: Dictated on workstation # [id number]
== END ==
LOC: RAD 16:23
PROVIDERS: ATTEND Urology
DX: N20.0 Calculus of kidney (principal)
CPT/HCPCS: 74018

== ENCOUNTER → 2020-07-17 | Outpatient (CLI) | payer BC ==
--- NOTE | 2020-07-17 15:04 | Diagnostic Imaging Report ---
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 Lung banks show interval development of areas of linear scarring and/or atelectasis, left greater than right. Otherwise, lungs are clear. There are no focal consolidation, large effusion or pneumothorax. The visualized osseous structures show no acute abnormalities. IMPRESSION: 1. Interval development of linear areas of scarring and/or atelectasis, left greater than right. 2. No evidence of failure or focal infiltrate. Dictated by: Dictated on workstation # [id number]
== END ==
LOC: RAD 13:31
PROVIDERS: ATTEND Physician Assistant
DX: L40.0 Psoriasis vulgaris (principal); Z79.899 Other long term (current) drug therapy
CPT/HCPCS: 71046

== ENCOUNTER 2021-01-08 12:34 | Day surgery (SDC) | payer BC ==
[~2021-01-08] VITALS: Ht 175.3 cm; Wt 81.0 kg
[~2021-01-08 12:34] MED LIST changes: +NS IV 500 ML 500 ML IV SCH
[2021-01-08 12:40] VITALS: BP 127/82
[2021-01-08] MEDS ORDERED: CATHETER FLUSH 10 ML SYR IV PRN (13:00)
[2021-01-08 13:16] LABS: HEMOGLOBIN 16.2 g/dL (13.3-17.7); MEAN PLATELET VOLUME 10.4 fL (9.0-12.2)
[2021-01-08 13:24] LABS: ALBUMIN 3.6 GM/DL (3.2-4.5)
[2021-01-08 13:25] LABS: CHLORIDE 98 MMOL/L (98-107); POTASSIUM 3.3 MMOL/L (3.6-5.0); SODIUM 138 MMOL/L (135-145)
[2021-01-08 13:26] LABS: CALCIUM 8.5 MG/DL (8.5-10.1)
[2021-01-08 13:27] LABS: GLUCOSE 98 MG/DL (70-105); TOTAL PROTEIN 7.2 GM/DL (6.4-8.2)
[2021-01-08] MEDS: NS IV 1000 ML 1,000 ML IV SCH ×2 (13:27→21:46)
[2021-01-08 13:28] LABS: CARBON DIOXIDE 30 MMOL/L (21-32)
[2021-01-08 13:29] LABS: BILIRUBIN,TOTAL 1.3 MG/DL (0.1-1.0)
[2021-01-08 13:30] LABS: ALKALINE PHOSPHATASE 68 U/L (40-136)
[2021-01-08 13:31] LABS: CREATININE SERUM 1.15 MG/DL (0.60-1.30); GFR ESTIMATED > 60
[2021-01-08 13:32] LABS: BUN/CREATININE RATIO 18
[2021-01-08 13:34] LABS: ALANINE AMINOTRANSFERASE 48 U/L (0-55)
[2021-01-08] MEDS ORDERED: HOLD METFORMIN - RECEIVED CONTRAST 20 ML VIAL IV SCH (14:00)
[2021-01-08] MEDS ORDERED: IOHEXOL 350 MG/ML 100 ML (OMNIPAQUE 350) VIAL IV ONE (14:00)
[2021-01-08] MEDS ORDERED: NS 100 ML (IVPB) BAG IV ONE (14:00)
[2021-01-08] MEDS: ONDANSETRON 4 MG/2 ML (SDV) Z0FRAN IVP PRN ×2 (14:29→20:26)
--- NOTE | 2021-01-08 14:47 | Diagnostic Imaging Report ---
INDICATION: Abdominal pain and nausea x 1 week. TECHNIQUE: Precontrast acquisitions were acquired through the abdomen and pelvis. Multiple contiguous axial images were obtained through the abdomen and pelvis after the administration of intravenous contrast. Auto Exposure Controls were utilized during the CT exam to meet ALARA standards for radiation dose reduction. COMPARISON: 08/28/2013. FINDINGS: The visualized portions of the lung bases demonstrate some mild bibasilar scarring. There is no consolidation, pleural fluid, or free intraperitoneal air. There is a moderate-sized hiatal hernia with thickening of the lower esophagus. The liver and gallbladder appear normal. The spleen, adrenals, and pancreas appear normal. The kidneys bilaterally show multiple cysts. There is a lesion in the right kidney superiorly measuring 1.9 cm which is hyperdense but does not appear to change on the immediate and delayed post contrast images and, therefore, is probably a hyperdense cyst. There are nonocclusive stones in both kidneys. There is no retroperitoneal mass or adenopathy. There is no ascites or abnormal fluid collection. There is no pelvic mass. There are uncomplicated colonic diverticula. There is no sign of bowel obstruction or focal bowel wall thickening. IMPRESSION: There is a moderate-sized hiatal hernia with some thickening of the lower esophagus. There is no sign of intestinal obstruction. There is a normal appearance of the appendix. There are multiple cysts in both kidneys including a hyperdense cyst in the right kidney. There are nonocclusive stones in both kidneys. Dictated by: Dictated on workstation # [id number]
[2021-01-08] MEDS ORDERED: HYDR25TA4 PO (15:49)
[2021-01-08] MEDS ORDERED: GUSE100A INJ (15:49)
[2021-01-08] MEDS ORDERED: ONDA4TAB11 PO (15:49)
[2021-01-08] MEDS ORDERED: BUSP5TAB59 PO (15:49)
[2021-01-08] MEDS ORDERED: ESOM20CA58 PO (15:49)
[2021-01-08 16:00] VITALS: BP 134/93
--- NOTE | 2021-01-08 17:27 | History & Physical ---
History of Present Illness History of Present Illness Reason for visit/HPI PT IS A 65 Y/O MALE WHO IS KNOWN TO ME A PATIENT IN MY MEDICAL PRACTICE. HE PRESENTED TO THE OFFICE TODAY WITH COMPLAINT OF PERSISTENT FATIGUE, WEAKNESS, NAUSEA WITH SIGNIFICANT ABDOMINAL PAIN. HE REPORTS THAT HE HAS NOT HAD MANY BOWEL MOVEMENTS FOR ALMOST A WEEK BECAUSE IT MAKES HIM TOO NAUSEATED TO EAT OR DRINK MUCH - SO HE HAS NOT HAD MUCH INTAKE FOR THE PAST WEEK. HE REPORTS THAT PRIOR TO BECOMING ILL HE ATE OUT AND DID NOT EAT THE SAME MEAL THE REST OF HIS FAMILY - HE STARTED TO BECOME ILL ABOUT 8 HOURS AFTER HIS MEAL. PT HAS HAD A 10# WEIGHT LOSS IN THE PAST 10 DAYS Date of Admission Jan 08, 2021 at 12:34 Date Seen by a Provider: Jan 08, 2021 Time Seen by a Provider: 17:00 Attending Physician Kate Jessica MD Admitting Physician Kate Jessica MD Consult DR. PADRON Allergies and Home Medications Allergies Coded Allergies: No Known Drug Allergies (Unverified , 08/29/13) Home Medications Buspirone HCl 5 Mg Tablet, 5 MG PO BID PRN for ANXIETY, (Reported) Esomeprazole Magnesium 20 Mg Capsule.dr, 20 MG PO DAILY, (Reported) Guselkumab 100 Mg/1 Ml Auto.injct, 1 EA INJ EVERY 8 WEEKS, (Reported) Hydrochlorothiazide 25 Mg Tablet, 25 MG PO DAILY, (Reported) Ondansetron 4 Mg Tab.rapdis, 4 MG PO QID PRN for NAUSEA/VOMITING-1ST LINE, (Reported) Patient Home Medication List Home Medication List Reviewed: Yes Past Xpfgksr-Kxebii-Mkwcyi Hx Past Med/Social Hx: Reviewed Nursing Past Med/Soc Hx Patient Social History Marrital Status: Number of Children: 2 Number of living children: 2 Living Status: SINGLE FAMILY DWELLING 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[employer]) Alcohol Use: Denies Use Smoking Status: Never a Smoker 2nd Hand Smoke Exposure: No Physical Abuse Screen: No Sexual Abuse: No Recent Foreign Travel: No Contact w/other who traveled: No Recent Hopitalizations: No Recent Infectious Disease Expo: No Social History LIVES WITH SPOUSE - HAS 2 STEP CHILDREN, 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 Seasonal Allergies Seasonal Allergies: No Past Medical History KIDNEY STONE LITHOTROPSY 2014 AND 2016 Currently Using CPAP: No Currently Using BIPAP: No Cardiac: High Cholesterol, Hypertension Genitourinary: Kidney Stones Gastrointestinal: Liver Disease/Jaundice Musculoskeletal: Arthritis Loss of Vision: Denies Hearing Impairment: Denies Psychosocial: Anxiety, Depression History of Blood Disorders: No Family History Reviewed Nursing Family Hx CAD Over 55 Years Old (MOTHER), Hypertension Review of Systems Constitutional: No chills, No diaphoresis, No fever; malaise, weakness, weight loss (10# IN 10 DAYS) EENTM: No hearing loss, No hoarseness, No throat pain Respiratory: No cough, No dyspnea on exertion, No phlegm, No short of breath Cardiovascular: No chest pain, No edema, No palpitations Gastrointestinal: abdominal pain (DIFFUSELY), nausea; No vomiting Genitourinary: no symptoms reported Musculoskeletal: muscle weakness Skin: no symptoms reported Psychiatric/Neurological: Denies Anxiety; Weakness All Other Systems Reviewed Negative Unless Noted: Yes Physical Exam Vital Signs Vital Signs - First Documented 01/08/21 12:40 Temp 36.8 Pulse 60 Resp 18 B/P (MAP) 127/82 (97) Pulse Ox 96 O2 Delivery Room Air Capillary Refill : Height, Weight, BMI Height: 5'9.00" Weight: 180lbs. 0.0oz. 81.002453bf; 26.35 BMI Method:Stated General Appearance: No Apparent Distress, WD/WN Eyes: Bilateral Eye Normal Inspection, Bilateral Eye PERRL, Bilateral Eye EOMI HEENT: PERRL/EOMI, TMs Normal, Normal ENT Inspection, Pharynx Normal Neck: Supple Respiratory: Chest Non Tender, Lungs Clear, Normal Breath Sounds, No Accessory Muscle Use, No Respiratory Distress Cardiovascular: Regular Rate, Rhythm, No Murmur, Normal Peripheral Pulses Gastrointestinal: Soft, Tenderness (DIFFUSELY - LLQ AND EPIGASTRIUM ARE WORST AREAS OF PAIN), Other (DECREASED BOWEL SOUNDS) Back: Normal Inspection, No Vertebral Tenderness Extremity: Normal Capillary Refill, Normal Inspection, Normal Range of Motion, Non Tender, No Calf Tenderness, No Pedal Edema Neurologic/Psychiatric: Alert, Oriented x3, No Motor/Sensory Deficits, Normal 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/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 PADRON WHO WILL TAKE PATIENT TO HAVE AN EGD TOMORROW. - NPO AFTER MIDNIGHT IN ANTICIPATION OF EGD CHRONIC HYPERTENSION - HOLD HOME MEDS FOR NOW, WILL RESTART WHEN TAKING PO CHRONIC ANXIETY AND DEPRESSION - HOLD HOME REGIMEN, WILL RESTART TOMORROW AFTER EGD DVT PROPHYLAXIS WITH SCD'S GI PROPHYLAXIS WITH PROTONIX Admission Diagnosis NAUSEA ABDOMINAL PAIN DEHYDRATION RECENT FOOD POISONING ELEVATED BILIRUBIN MODERATE HIATAL HERNIA ESOPHAGEAL THICKENING CHRONIC HYPERTENSION CHRONIC ANXIETY AND DEPRESSION Admission Status: Observation KATE JESSICA MD Jan 08, 2021 17:27
[2021-01-08] MEDS ORDERED: PROMETHAZINE INJ 25 MG/ML (PHENERGAN) AMP IVP PRN (18:15)
[2021-01-08 19:35] VITALS: BP 128/86
[2021-01-08] MEDS: PANTOPRAZOLE 40 MG (PROTONIX) VIAL IV SCH (20:26)
[2021-01-08 23:46] VITALS: BP 111/77
[2021-01-09] VITALS (8 sets, daily range): BP systolic 106–136; BP diastolic 71–90
[2021-01-09] MEDS: NS IV 1000 ML 1,000 ML IV SCH ×3 (05:44→15:10)
[2021-01-09 05:59] LABS: HEMOGLOBIN 13.9 g/dL (13.3-17.7); MEAN PLATELET VOLUME 10.6 fL (9.0-12.2); WHITE BLOOD COUNT 7.3 10^3/uL (4.3-11.0)
[2021-01-09 06:19] LABS: BUN/CREATININE RATIO 15; CALCIUM 7.6 MG/DL (8.5-10.1); CARBON DIOXIDE 24 MMOL/L (21-32); CHLORIDE 106 MMOL/L (98-107); CREATININE SERUM 1.03 MG/DL (0.60-1.30); GFR ESTIMATED > 60; GLUCOSE 98 MG/DL (70-105); POTASSIUM 3.3 MMOL/L (3.6-5.0); SODIUM 140 MMOL/L (135-145)
[2021-01-09] MEDS: PANTOPRAZOLE 40 MG (PROTONIX) VIAL IV SCH (08:08)
[2021-01-09] MEDS ORDERED: LACTATED RINGERS 1,000 ML IV ONE ×2 (09:21→11:15)
--- NOTE | 2021-01-09 10:14 | Consultation - Surgery ---
YANELY NEWSOME MED STUDENT 01/09/21 1013: History of Present Illness History of Present Illness Patient Consulted On(mary ann/time) 01/09/21 10:08 Time Seen by Provider: 10:08 History of Present Illness 9 days of intense nausea vomiting with electrolyte imbalance. Appearance was brown and eventually moved to clear to yellow, denies anything that has looked bloody or pink tinged. Last time that he vomited was yesterday afternoon during the CT scan. Reports that he is feeling a lot better today and hasn't vomited. Has been passing gas but hasn't had a bowel movement in a week. Allergies and Home Medications Allergies Coded Allergies: No Known Drug Allergies (Unverified , 08/29/13) Home Medications Buspirone HCl 5 Mg Tablet, 5 MG PO BID PRN for ANXIETY, (Reported) Esomeprazole Magnesium 20 Mg Capsule.dr, 20 MG PO DAILY, (Reported) Guselkumab 100 Mg/1 Ml Auto.injct, 1 EA INJ EVERY 8 WEEKS, (Reported) Hydrochlorothiazide 25 Mg Tablet, 25 MG PO DAILY, (Reported) Ondansetron 4 Mg Tab.rapdis, 4 MG PO QID PRN for NAUSEA/VOMITING-1ST LINE, (Reported) Past Bsaymer-Mtnrld-Auuibu Hx Patient Social History Smoking Status: Never a Smoker 2nd Hand Smoke Exposure: No Recent Hopitalizations: No Physical Abuse Screen: No Sexual Abuse: No Alcohol Use?: No Have you traveled recently?: No Seasonal Allergies Seasonal Allergies: No Surgeries History of Surgeries: No Respiratory History of Respiratory Disorde: No Cardiovascular History of Cardiac Disorders: No Cardiac Disorders: High Cholesterol, Hypertension Neurological History of Neurological Disord: No Genitourinary History of Genitourinary Disor: Yes Genitourinary Disorders: Kidney Stones Gastrointestinal History of Gastrointestinal Di: Yes (ELEVATED LIVER ENZYMES) Gastrointestinal Disorders: Liver Disease/Jaundice Musculoskeletal History of Musculoskeletal Dis: No Musculoskeletal Disorders: Arthritis Endocrine History of Endocrine Disorders: No HEENT Loss of Vision: Denies Hearing Impairment: Denies Cancer History of Cancer: No Psychosocial History of Psychiatric Problem: No Behavioral Health Disorders: Anxiety, Depression Integumentary History of Skin or Integumenta: No Blood Transfusions History of Blood Disorders: No Family Medical History Significant Family History: CAD Over 55 Years Old (MOTHER), Hypertension Review of Systems-General Constitutional: see HPI; No dizziness, No fever, No weakness EENTM: No double vision, No tearing, No nose congestion Respiratory: No cough, No short of breath, No wheezing Cardiovascular: No chest pain, No palpitations, No syncope Gastrointestinal: No abdominal pain, No constipation (denies pain in the abdomen but reports that his abdominal muscles are sore. ), No diarrhea, No heartburn, No nausea; vomiting (no vomiting since yesterday afternoon) Genitourinary: No dysuria, No pain Musculoskeletal: muscle pain; No muscle stiffness, No muscle cramps, No muscle weakness Skin: no symptoms reported Psychiatric/Neurological: No Symptoms Reported Physical Exam-General Problems Physical Exam Vital Signs Vital Signs - First Documented 01/08/21 12:40 Temp 36.8 Pulse 60 Resp 18 B/P (MAP) 127/82 (97) Pulse Ox 96 O2 Delivery Room Air Capillary Refill : General Appearance: WD/WN, no apparent distress HEENT: PERRL/EOMI, normal ENT inspection, TMs normal, pharynx normal Neck: non-tender, full range of motion, supple, normal inspection Respiratory: chest non-tender, lungs clear, normal breath sounds, no respiratory distress, no accessory muscle use Cardiovascular: normal peripheral pulses, regular rate, rhythm, no edema, no gallop, no JVD, no murmur Gastrointestinal: normal bowel sounds, non tender, soft, no organomegaly, no pulsatile mass Extremities: non-tender, normal inspection, no pedal edema, no calf tenderness, normal capillary refill 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, alert, normal mood/affect, oriented x 3 Skin: normal color, warm/dry Lymphatic: no adenopathy Data Review Labs Laboratory Tests 01/08/21 13:05: White Blood Count 10.0, Red Blood Count 5.53H, Hemoglobin 16.2, Hematocrit 48, Mean Corpuscular Volume 87, Mean Corpuscular Hemoglobin 29, Mean Corpuscular Hemoglobin Concent 34, Red Cell Distribution Width 13.4, Platelet Count 320, Mean Platelet Volume 10.4, Sodium Level 138, Potassium Level 3.3L, Chloride Leve l 98, Carbon Dioxide Level 30, Anion Gap 10, Blood Urea Nitrogen 21H, Creatinine 1.15, Estimat Glomerular Filtration Rate > 60, BUN/Creatinine Ratio 18, Glucose Level 98, Calcium Level 8.5, Corrected Calcium 8.8, Total Bilirubin 1.3H, Aspartate Amino Transf (AST/SGOT) 24, Alanine Aminotransferase (ALT/SGPT) 48, Alkaline Phosphatase 68, Total Protein 7.2, Albumin 3.6 01/08/21 21:45: Coronavirus 2019 ([facility]) Negative 01/09/21 05:52: White Blood Count 7.3, Red Blood Count 4.80, Hemoglobin 13.9, Hematocrit 42, Mean Corpuscular Volume 88, Mean Corpuscular Hemoglobin 29, Mean Corpuscular Hemoglobin Concent 33, Red Cell Distribution Width 13.4, Platelet Count 277, Mean Platelet Volume 10.6, Sodium Level 140, Potassium Level 3.3L, Chloride Level 106, Carbon Dioxide Level 24, Anion Gap 10, Blood Urea Nitrogen 15, Creatinine 1.03, Estimat Glomerular Filtration Rate > 60, BUN/Creatinine Ratio 15, Glucose Level 98, Calcium Level 7.6L Assessment/Plan Assessment/Plan Assessment/Plan ASSESSMENT Severe nausea and vomiting Anorexia Constipation PLAN EGD with biopsy to assess esophageal damage CT scan to evaluate the bowels KIA PARSONS DO 01/09/21 1205: History of Present Illness History of Present Illness Date Seen by Provider: Jan 09, 2021 History of Present Illness Consult requested by Dr. Jessica for nausea vomiting. Patient is a 65 year old male with nausea and [id number] for about 8 days. Patient ate some food that is thought to have caused food poisoning. Patient having multiple episodes of emesis . He denies any blood in emesis. He is not having any abdominal pain. He is currently NPO and feeling better today, no emesis today. He had a ct scan showing hiatal hernia with distal esophageal thickening and renal cyst. Allergies and Home Medications Allergies Coded Allergies: No Known Drug Allergies (Unverified , 08/29/13) Home Medications Buspirone HCl 5 Mg Tablet, 5 MG PO BID PRN for ANXIETY, (Reported) Esomeprazole Magnesium 20 Mg Capsule., 20 MG PO DAILY, (Reported) Guselkumab 100 Mg/1 Ml Auto.injct, 1 EA INJ EVERY 8 WEEKS, (Reported) Hydrochlorothiazide 25 Mg Tablet, 25 MG PO DAILY, (Reported) Ondansetron 4 Mg Tab.rapdis, 4 MG PO QID PRN for NAUSEA/VOMITING-1ST LINE, (Reported) Patient Home Medication List Home Medication List Reviewed: Yes Past Wefiagm-Fscjsu-Vjayyl Hx Reviewed Nursing Assessment Reviewed/Agree w Nursing PMH: Yes Family Medical History Significant Family History: No Pertinent Family Hx Review of Systems-General Constitutional: No dizziness, No fever, No weakness EENTM: No double vision, No tearing, No nose congestion Respiratory: No cough, No short of breath, No wheezing Cardiovascular: No chest pain, No palpitations, No syncope Gastrointestinal: No abdominal pain, No constipation (denies pain in the abdomen but reports that his abdominal muscles are sore. ), No diarrhea, No heartburn; nausea, vomiting (no vomiting since yesterday afternoon) Genitourinary: No dysuria, No pain Musculoskeletal: No muscle stiffness, No muscle cramps, No muscle weakness Skin: No change in color, No change in hair/nails Psychiatric/Neurological: Denies Anxiety, Denies Depressed All Other Systems Reviewed Negative Unless Noted: Yes (Negative excepted noted.) Physical Exam-General Problems Physical Exam General Appearance: WD/WN, no apparent distress HEENT: PERRL/EOMI, normal ENT inspection Neck: non-tender, supple, normal inspection Respiratory: chest non-tender, no respiratory distress, no accessory muscle use Cardiovascular: regular rate, rhythm, no JVD Gastrointestinal: non tender, soft, no organomegaly Rectal: deferred Back: no CVA tenderness, no vertebral tenderness Extremities: non-tender, normal inspection, no pedal edema 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 Protonix/Start carafated. Likely obtain biopsies from egd. Further recommendations pending results Supervisory-Addendum Brief Verification & Attestation Participated in pt care: history, MDM, physical Personally performed: exam, history, MDM, supervision of care Care discussed with: Medical Student Procedures: n/a Results interpretation: Verified all documentation Verification and Attestation of Medical Student E/M Service A medical student performed and documented this service in my presence. I reviewed and verified all information documented by the medical student and made modifications to such information, when appropriate. I personally performed the physical exam and medical decision making. Kia Parsons, Jan 09, 2021,12:08 YANELY NEWSOME MED STUDENT Jan 09, 2021 10:13 KIA PARSONS DO Jan 09, 2021 12:05
[2021-01-09] MEDS ORDERED: proPOfol 200 MG/20 ML (DIPRIVAN) VIAL IV ONE (11:03)
[2021-01-09] MEDS ORDERED: MIDAZOLAM 2 MG/2 ML (VERSED) VIAL ONE (11:04)
[2021-01-09] MEDS ORDERED: HURRICAINE EXT TUBE (BENZOCAINE) XX ONE (11:15)
--- NOTE | 2021-01-09 12:09 | Progress Note-Post Operative ---
Post-Operative Progess Note Surgeon (s)/Fringe Knotter (s) Surgeon KIA PADRON DO Fringe Knotter: na Pre-Operative Diagnosis n/v hiatal hernia Post-Operative Diagnosis hiatal hernia, erosive esophagitis Procedure & Operative Findings Date of Procedure 01/09/21 Procedure Performed/Findings egd c biopsies Anesthesia Type per side door man Estimated Blood Loss Estimated blood loss (mL): none Specimens/Packing Specimens Removed antrum, ge KIA PADRON DO Jan 09, 2021 12:09
[2021-01-09] MEDS ORDERED: SUCRALFATE 1 GM (CARAFATE) TAB PO SCH (16:00)
--- NOTE | 2021-01-09 17:14 | Discharge Summary ---
Diagnosis/Chief Complaint Date of Admission Jan 08, 2021 at 12:34 Date of Discharge Reason Hospital Visit PT IS A 65 Y/O MALE WHO IS KNOWN TO ME A PATIENT IN MY MEDICAL PRACTICE. HE PRESENTED TO THE OFFICE TODAY WITH COMPLAINT OF PERSISTENT FATIGUE, WEAKNESS, NAUSEA WITH SIGNIFICANT ABDOMINAL PAIN. HE REPORTS THAT HE HAS NOT HAD MANY BOWEL MOVEMENTS FOR ALMOST A WEEK BECAUSE IT MAKES HIM TOO NAUSEATED TO EAT OR DRINK MUCH - SO HE HAS NOT HAD MUCH INTAKE FOR THE PAST WEEK. HE REPORTS THAT PRIOR TO BECOMING ILL HE ATE OUT AND DID NOT EAT THE SAME MEAL THE REST OF HIS FAMILY - HE STARTED TO BECOME ILL ABOUT 8 HOURS AFTER HIS MEAL. PT HAS HAD A 10# WEIGHT LOSS IN THE PAST 10 DAYS Discharge Summary Discharge Physical Examination Allergies: Coded Allergies: No Known Drug Allergies (Unverified , 08/29/13) Vitals & I&Os Vital Signs Date Time Temp Pulse Resp B/P (MAP) Pulse Ox O2 Delivery O2 Flow Rate FiO2 01/09/21 15:23 36.4 76 18 122/84 (97) 95 Room Air 01/09/21 11:55 10 Discharge Instructions to patient/family Please see electronic discharge instructions given to patient. Discharge Medications Reviewed and agree with Discharge Medication list on patient's Discharge Instruction sheet KATE PLUNKETT MD Jan 09, 2021 17:14
[2021-01-09] MEDS ORDERED: PANT40TA52 PO (17:20)
[2021-01-09] MEDS ORDERED: SUCR1TAB PO (17:20)
--- NOTE | 2021-01-09 17:25 | Discharge Inst-Simple/Standard ---
Discharge Inst-Standard Reconcile Patient Problems Problems Reviewed?: Yes Discharge Medications New, Converted or Re-Newed RX: Transmitted to Pharmacy ([facility]) Patient Instructions/Follow Up Plan of Care/Instructions/FU: advance diet as tolerated from a bland diet to a low acid diet no pop, no coffee, no tea/no caffeine no juice or high citrc acid fruits or veggies 10 days to 14 days with [facility] 2-[address] freeman Activity as Tolerated: Yes Discharge Diet: Other Diet (advance diet as tolerated from a bland diet to a low acid diet) Return to The Hospital For: any recurrent symptoms that are worsening or not controlled with medications. KATE PLUNKETT MD Jan 09, 2021 17:25
--- NOTE | 2021-01-09 21:52 | OPERATIVE REPORT ---
DATE OF SERVICE: 01/09/2021 PREOPERATIVE DIAGNOSES: Hiatal hernia, nausea, vomiting, abnormal CT scan with esophageal thickening. POSTOPERATIVE DIAGNOSES: Hiatal hernia, erosive esophagitis. PROCEDURE: EGD with biopsy. SURGEON: Kia Parsons DO ANESTHESIA: Per LAYBOY OPERATOR. ESTIMATED BLOOD LOSS: None. COMPLICATIONS: None. INDICATIONS: The patient is a 65-year-old male, who having nausea, vomiting and had a CT scan that showed abnormal thickening of the esophagus and hiatal hernia. He understands risks and benefits of procedure and wished to proceed with procedure. Consent was signed in the chart. DESCRIPTION OF PROCEDURE: The patient was taken to the endoscopy suite, placed in left lateral recumbent position. Timeout was performed. Scope was inserted in mouth, down the esophagus, stomach and into the duodenum without difficulty. There were no polyps, masses or ulcerations within the duodenum. Scope was slowly retracted back into the stomach where it was further insufflated. No polyps, masses or ulcerations. Biopsy of the antrum was obtained. Scope was retroflexed noting a moderate sized hiatal hernia. Scope was returned to its normal position, slowly withdrawn to distal esophagus, which had changes of erosive esophagitis. A biopsy of GE junction was obtained. Scope was then slowly retracted back until completely removed. Noting no other pathology. The patient tolerated procedure well without any complications, taken to recovery room in stable condition. RECOMMENDATIONS: The patient to continue on Protonix and add Carafate 1 gram four times a day. We will consider repeating endoscopy in the near future for reevaluation approximately 2 months if the patient wishes to proceed. Further recommendations pending biopsy results. Job ID: [id number] DocumentID: [id number] Dictated Date: 01/09/2021 16:28:12 Corrective Therapist Date: 01/09/2021 21:52:17 Dictated By: KIA PARSONS DO
--- NOTE | 2021-01-16 07:03 | Anesthesia-General Post-Op ---
MAC Significant Intra-Op Events Notes postop addendum for mac on 01-09-21 [id number] Patient Condition Mental Status/LOC: Same as Preop Cardiovascular: Satisfactory Nausea/Vomiting: Absent Respiratory: Satisfactory Pain: Controlled Complications: Absent Post Op Complications Complications None Follow Up Care/Instructions Patient Instructions None needed. Anesthesiology Discharge Order Discharge Order Patient is doing well, no complaints, stable vital signs, no apparent adverse anesthesia problems. No complications reported per nursing. TRACY DEVI CRNA Jan 16, 2021 07:02
== END 2021-01-09 17:53 | disposition home or self-care (01) ==
LOC: SDC 12:34 → UNDOADMOB 12:34 → 4TH 12:34 → EDSTATUS 12:52 → SDC 01-09 17:53 → UNDODISOB 01-09 17:53
PROVIDERS: ATTEND Family Medicine
DX: K29.50 Unspecified chronic gastritis without bleeding (principal); K44.9 Diaphragmatic hernia without obstruction or gangrene; K21.00 Gastro-esophageal reflux disease with esophagitis, without bleeding; I10 Essential (primary) hypertension; G47.33 Obstructive sleep apnea (adult) (pediatric); F41.9 Anxiety disorder, unspecified; E78.00 Pure hypercholesterolemia, unspecified; F32.9 Major depressive disorder, single episode, unspecified; M19.90 Unspecified osteoarthritis, unspecified site; Z79.899 Other long term (current) drug therapy; Z87.442 Personal history of urinary calculi; Z20.822 Contact with and (suspected) exposure to COVID-19
CPT/HCPCS: 43239; 74178; 80048; 80053; 85027 ×2; 87081; 88305; 88312; U0002; 36415; 87635

== ENCOUNTER 2021-04-11 05:33 | Outpatient (RCR) | payer BC ==
[~2021-04-11] VITALS: Ht 175.3 cm; Wt 86.3 kg
[~2021-04-11 05:33] MED LIST changes: +BUSP5TAB59 PO; +ESOM20CA58 PO; +GUSE100A INJ; +HYDR25TA4 PO; -NS IV 500 ML 500 ML IV SCH; +ONDA4TAB11 PO; +PANT40TA52 PO; +SUCR1ORA15 PO; +SUCR1TAB PO
== END 2021-04-11 14:12 | disposition home or self-care (01) ==
LOC: PREOP 05:33
PROVIDERS: ATTEND Surgery
DX: Z01.812 Encounter for preprocedural laboratory examination (principal); K21.9 Gastro-esophageal reflux disease without esophagitis; Z20.822 Contact with and (suspected) exposure to COVID-19
CPT/HCPCS: 87635

== ENCOUNTER 2021-04-15 11:26 | Day surgery (SDC) | payer BC ==
[~2021-04-15] VITALS: Ht 175.3 cm; Wt 86.3 kg
[~2021-04-15 11:26] MED LIST changes: +LACTATED RINGERS 1,000 ML IV ONE
[2021-04-15] MEDS ORDERED: LACTATED RINGERS 1,000 ML IV STA (11:28)
[2021-04-15] MEDS ORDERED: HURRICAINE EXT TUBE (BENZOCAINE) XX PRN (11:30)
[2021-04-15 11:42] VITALS: BP 126/92
[2021-04-15] MEDS ORDERED: MIDAZOLAM 2 MG/2 ML (VERSED) VIAL ONE (11:46)
[2021-04-15] MEDS ORDERED: PROPOFOL INJECTION 50 ML IV ONE (11:46)
--- NOTE | 2021-04-15 12:05 | Progress Note-Pre Operative ---
Pre-Operative Progress Note H&P Reviewed The H&P was reviewed, patient examined and no changes noted. Date Seen by Provider: Apr 15, 2021 Time Seen by Provider: 12:05 Date H&P Reviewed: Apr 15, 2021 Time H&P Reviewed: 12:05 Pre-Operative Diagnosis: gerd, hx erosive esophagitis KIA PADRON DO Apr 15, 2021 12:05
[2021-04-15 12:10] VITALS: BP 121/83
[2021-04-15 12:15] VITALS: BP 101/66
[2021-04-15 12:20] VITALS: BP 98/62
--- NOTE | 2021-04-15 12:20 | Progress Note-Post Operative ---
Post-Operative Progess Note Surgeon (s)/Painter And Decorator Apprentice (s) Surgeon KIA PADRON DO Painter And Decorator Apprentice: na Pre-Operative Diagnosis gerd, hx erosive esophagitis Post-Operative Diagnosis hiatal hernia Procedure & Operative Findings Date of Procedure 04/15/21 Procedure Performed/Findings egd Anesthesia Type per certified diabetes educator Estimated Blood Loss Estimated blood loss (mL): na Specimens/Packing Specimens Removed na KIA PADRON DO Apr 15, 2021 12:20
--- NOTE | 2021-04-15 12:21 | Discharge Inst-Simple/Standard ---
Discharge Inst-Standard Patient Instructions/Follow Up Plan of Care/Instructions/FU: F/u Dr. Parsons on as needed basis. If change in symptoms be seen at that time. 1 year Jaqueline Activity as Tolerated: Yes Discharge Diet: Regular Diet KIA PARSONS DO Apr 15, 2021 12:21
[2021-04-15 12:25] VITALS: BP 98/62
[2021-04-15 12:39] VITALS: BP 110/70
--- NOTE | 2021-04-15 14:24 | Anesthesia-General Post-Op ---
MAC Patient Condition Mental Status/LOC: Same as Preop Cardiovascular: Satisfactory Nausea/Vomiting: Absent Respiratory: Satisfactory Pain: Controlled Complications: Absent Post Op Complications Complications None Follow Up Care/Instructions Patient Instructions None needed. Anesthesiology Discharge Order Discharge Order Patient is doing well, no complaints, stable vital signs, no apparent adverse anesthesia problems. No complications reported per nursing. TRACY DEVI CRNA Apr 15, 2021 14:24
--- NOTE | 2021-04-15 15:18 | OPERATIVE REPORT ---
DATE OF SERVICE: 04/15/2021 PREOPERATIVE DIAGNOSES: Gastroesophageal reflux disease and history of erosive esophagitis. POSTOPERATIVE DIAGNOSIS: Hiatal hernia. PROCEDURE PERFORMED: EGD. SURGEON: Kia Parsons DO. ANESTHESIA: Per IMPREGNATING HELPER. ESTIMATED BLOOD LOSS: None. COMPLICATIONS: None. INDICATIONS FOR PROCEDURE: The patient is a 66-year-old male with GERD symptoms and history of erosive esophagitis. He understands the risks and benefits of the procedure and wished to proceed with the procedure. Consent was signed in the chart. DESCRIPTION OF PROCEDURE: The patient was taken to the endoscopy suite and placed in a left lateral recumbent position. Timeout was performed. Scope was inserted in mouth, down the esophagus, stomach and into the duodenum without difficulty. No polyps, masses or ulcerations within the duodenum. Scope was slowly retracted in the stomach where it was further insufflated. No polyps, masses or ulcerations. No erythematous changes. Antrum appeared normal. The scope was retroflexed noting hiatal hernia, no other pathology noted. Scope was returned to its normal position, slowly withdrawn to the distal esophagus, which had normal appearance. No evidence of any erosive esophagitis or reflux esophagitis at this time. The scope was then slowly retracted back until completely removed. The patient tolerated procedure well without any complications. He was taken to recovery room in stable condition. RECOMMENDATIONS: The patient will follow up on as needed basis, otherwise, one year. The patient would like to have hiatal hernia repair. Would also get a barium swallow to further evaluate. Would continue on current medications. Job ID: [id number] DocumentID: [id number] Dictated Date: 04/15/2021 12:23:23 Water Main Installer Helper Date: 04/15/2021 15:17:09 Dictated By: KIA PARSONS DO
== END 2021-04-15 12:55 | disposition home or self-care (01) ==
LOC: ENDO 11:26
PROVIDERS: ATTEND Surgery
DX: K44.9 Diaphragmatic hernia without obstruction or gangrene (principal); K21.9 Gastro-esophageal reflux disease without esophagitis; I10 Essential (primary) hypertension; E78.2 Mixed hyperlipidemia; Z79.899 Other long term (current) drug therapy; Z87.19 Personal history of other diseases of the digestive system

== ENCOUNTER → 2021-07-24 | Outpatient (CLI) | payer BC ==
[~2021-07-24] MED LIST changes: -LACTATED RINGERS 1,000 ML IV ONE
[2021-07-24 15:30] LABS: ALBUMIN 3.9 GM/DL (3.2-4.5); BILIRUBIN,TOTAL 0.5 MG/DL (0.1-1.0); CALCIUM 9.3 MG/DL (8.5-10.1); CREATININE SERUM 1.21 MG/DL (0.60-1.30); POTASSIUM 3.3 MMOL/L (3.6-5.0); TOTAL PROTEIN 7.6 GM/DL (6.4-8.2)
== END ==
LOC: LAB 14:45
PROVIDERS: ATTEND Physician Assistant
DX: E78.2 Mixed hyperlipidemia (principal)
CPT/HCPCS: 36415; 80053; 80061

== ENCOUNTER → 2021-07-31 | Outpatient (CLI) | payer BC | LOC: CARD 14:00 | PROVIDERS: ATTEND Physician Assistant | DX: I11.9 Hypertensive heart disease without heart failure (principal); I25.10 Atherosclerotic heart disease of native coronary artery without angina pectoris | CPT/HCPCS: 93306 ==

== ENCOUNTER 2022-08-27 11:07 | Outpatient (RCR) | payer MEDICARE, OTHER ==
--- NOTE | 2022-08-27 14:11 | Diagnostic Imaging Report ---
EXAMINATION: Abdomen 1 view HISTORY: Renal stones COMPARISON: 01/09/2020 FINDINGS: There is a moderate amount of gas and stool throughout the colon. Nonobstructive bowel gas pattern. There are multiple calcifications overlying the left kidney measuring up to 0.9 cm, similar to prior exam. The lung bases are clear. The osseous structures are intact. IMPRESSION: Left renal calculi measuring up to 0.9 cm. Moderate stool burden. Dictated by: Dictated on workstation # [id number]
== END 2022-09-07 | disposition home or self-care (01) ==
LOC: RAD 11:07
PROVIDERS: ATTEND Urology
DX: N20.0 Calculus of kidney (principal)
CPT/HCPCS: 36415; 74018; 82140; 82340; 82507; 82570; 83735; 83945; 83986; 84105; 84133; 84300; 84392; 84560